=== PATIENT | male | born 1960 | race Hispanic/Latino ===

== ENCOUNTER 2016-10-27 19:38 | Inpatient (IN) | payer MEDICARE, MEDICAID ==
[2016-10-27 19:39] VITALS: BMI 19.7
--- NOTE | 2016-10-27 19:52 | C.PDOC ---
History Of Present Illness 56 y/o male presents to the ED with complains of depression and SI. Pt states he is tired of life, denies specific plan. No physical complaints at this time. Time Seen by Provider: 10/27/16 19:51 Chief Complaint (Nursing): Psychiatric Evaluation History Per: Patient History/Exam Limitations: no limitations Onset/Duration Of Symptoms: Days Current Symptoms Are (Timing): Still Present Suicide/Self Injury Attempted (Context): None Modifying Factor(s): None Severity: Mild Associated Symptoms: Depression, Suicidal Thoughts Involuntary Hold By: None Recent travel outside of the [place]: No Past Medical History Reviewed: Historical Data, Nursing Documentation, Vital Signs Vital Signs: Last Vital Signs Temp 97.9 F 10/28/16 05:54 Pulse 96 H 10/28/16 05:54 Resp 18 10/28/16 05:54 BP 190/100 H 10/28/16 05:54 Pulse Ox 97 10/28/16 05:54 - Medical History PMH: Depression, Hepatitis, HTN, Kidney Stones, Chronic Kidney Disease, Seizures Surgical History: Appendectomy (AGE 12) - [facility] Procedures DETOXIFICATION SERVICES FOR SUBSTANCE ABUSE TREATMENT (05/11/15) MEDICATION MANAGEMENT (05/15/15) Family History: States: Unknown Family Hx - Social History Hx Tobacco Use: No Hx Alcohol Use: Yes Hx Substance Use: Yes (ALCOHOL) - Immunization History Hx Tetanus Toxoid Vaccination: No Hx Influenza Vaccination: No Hx Pneumococcal Vaccination: No Review Of Systems Constitutional: Negative for: Fever Cardiovascular: Negative for: Chest Pain Respiratory: Negative for: Shortness of Breath Gastrointestinal: Negative for: Vomiting Neurological: Negative for: Headache Psych: Positive for: Depression, Suicidal ideation Physical Exam - Physical Exam Appears: Non-toxic, No Acute Distress Skin: Warm, Dry, No Rash Head: Atraumatic, Normacephalic Neck: Supple Chest: Symmetrical Cardiovascular: Rhythm Regular, No Murmur Respiratory: No Accessory Muscle Use, No Rales, No Rhonchi, No Wheezing Extremity: Bilateral: Atraumatic Neurological/Psych: Oriented x3, Normal Speech ED Course And Treatment - Laboratory Results Result Diagrams: 10/27/16 20:10 10/27/16 20:10 ECG: Interpreted By Me, Viewed By Me ECG Rhythm: Sinus Rhythm (77), Nonspecific Changes O2 Sat by Pulse Oximetry: 99 (room air) Pulse Ox Interpretation: Normal - Radiology CXR: Interpreted by Me, Viewed By Me CXR Interpretation: No: Infiltrates, Fracture, Pnemothorax Medical Decision Making Medical Decision Making: May need medicine consult for blood pressure control ED OBSERVATION Date of observation admission: 10/27/16 Time of observation admission: 21:03 - Observation admission statement Patient is being placed in observation because:: acute alcohol intoxication - Goals of Observation Goals of observation are:: sobriety, crisis eval - Progress Note Progress Note: 10/27/16 21:03 vitals stable, no complaints 10/27/16 23:07 no complaints 10/28/16 01:17 vitals stable 10/28/16 03:17 arousable, awaiting crisis eval Disposition Discussed With Dr.: Norman Self Comment: accepted the pt on his service and took over the care at 6:12 AM Doctor Will See Patient In The: Hospital Counseled Patient/Family Regarding: Studies Performed, Diagnosis - Disposition Disposition: HOSPITALIZED Disposition Time: 19:52 Condition: FAIR - Clinical Impression Clinical Impression: Depression, Alcohol intoxication, Alcohol abuse - Scribe Statement The provider has reviewed the documentation as recorded by the Bhaskar Mendoza Provider Attestation: All medical record entries made by the Bhaskar were at my direction and personally dictated by me. I have reviewed the chart and agree that the record accurately reflects my personal performance of the history, physical exam, medical decision making, and the department course for this patient. I have also personally directed, reviewed, and agree with the discharge instructions and disposition. Decision To Admit - Pt Status Changed To: Hospital Disposition Of: Inpatient - Admit Certification Admit to Inpatient:: After my assessment, the patient will require hospitalization for at least two midnights. This is because of the severity of symptoms shown, intensity of services needed, and/or the medical risk in this patient being treated as an outpatient. - InPatient: Physician Admission Certification: I certify that this patient requires 2 or more midnights of care for the following reason:: After my assessment, the patient will require hospitalization for at least two midnights. This is because of the severity of symptoms shown, intensity of services needed, and/or the medical risk in this patient being treated as an outpatient. - . Bed Request Type: Psychiatry Admitting Physician: Norman Self Patient Diagnosis: Alcohol abuse, Alcohol intoxication, Depression
[2016-10-27 20:20] LABS: BASO % 0.4 % (0.0-2.0); EOS % 0.2 % (0.0-4.0); HEMATOCRIT 52.9 % (35.0-51.0); LYMPH # 1.1 K/uL (1.0-4.3); LYMPH % 12.9 % (20.0-40.0); MEAN CORPUSCULAR HEMOGLOBIN 28.7 pg (27.0-31.0); MEAN CORPUSCULAR HGB CONC 33.4 g/dL (33.0-37.0); MEAN PLATELET VOLUME 8.5 fL (7.2-11.7); MONO # 0.3 K/uL (0.0-0.8); MONO % 3.8 % (0.0-10.0); NRBC % 0.1 % (0.0-2.0); WHITE BLOOD COUNT 8.4 K/uL (4.8-10.8)
[2016-10-27 20:24] LABS: CHLORIDE 102 mmol/L (98-107); POTASSIUM 4.4 mmol/L (3.6-5.2); SODIUM 143 mmol/L (132-148)
[2016-10-27 20:26] LABS: AST/SGOT 136 U/L (17-59); BILIRUBIN,TOTAL 1.5 mg/dL (0.2-1.3); CARBON DIOXIDE 19 mmol/L (22-30); GFR AFRICAN-AMERICAN > 60
[2016-10-27 20:27] LABS: ALKALINE PHOSPHATASE 104 U/L (38-126); ALT/SGPT 66 U/L (21-72); BLOOD UREA NITROGEN 12 mg/dL (9-20); CALCIUM 8.7 mg/dl (8.6-10.4); GLUCOSE,RANDOM 127 mg/dL (75-110)
[2016-10-27 20:43] LABS: RBC URINE 4 /hpf (0-3); URINE BACTERIA RARE (<OCC); URINE BILIRUBIN NEGATIVE (NEGATIVE); URINE BLOOD 1+ (NEGATIVE); URINE COLOR Yellow (YELLOW); URINE GLUCOSE (UA) NORMAL (Normal); URINE HYALINE CAST >20 /lpf (0-2); URINE KETONE NEGATIVE (NEGATIVE); URINE LEUKOCYTE ESTERASE NEG Leu/uL (Negative); URINE PROTEIN 2+ mg/dL (NEGATIVE); WBC URINE 1 /hpf (0-5)
[2016-10-27 20:59] LABS: ALCOHOL SERUM 342 mg/dl (0-10)
--- NOTE | 2016-10-28 09:44 | PCM.PSYCH ---
Initial Psychiatric Evaluation - Initial Psychiatric Evaluation Type of Admission: Voluntary Legal Status: Capacity Chief Complaint (in patient's own words): I was feeling depressed and suicidal History of Present Illness and Precipitating Events: Patient is a 56 years old male, who is currently homeless on SSI, came to the hospital with depressed mood and suicidal ideation. Patient reports a long history of depressed mood, alcohol abuse and opioid abuse. His was last discharged from psychiatric hospital 2 years ago. As per the patient he relapsed on drinking as soon as he was discharged from the hospital. Yesterday, he consumed more than 2 pints of vodka and abused almost 1 bag of heroin and stated experiencing withdrawal symptoms, became increasingly depressed and developed suicidal ideation, so came to the hospital to get help. His BAL was 342 on admission. He reports feelings of hopelessness and helplessness and worthlessness. He reports of suicidal ideation. He denies poor concentration and agitation but denies any racing of thoughts and flight of ideas. He denies any auditory or visual hallucinations or any persecutory delusions. He reports withdrawal symptoms including shakes, tremors, anxiety, sweating or cramps and headaches. Current Medications: Active Medications Generic Name Dose Route Start Last Admin Trade Name Freq PRN Reason Stop Dose Admin Al Hydrox/Mg Hydrox/Simethicone 30 ml 10/28/16 09:39 Maalox 30 Ml PO TID PRN Indigestion / Heartburn Clonidine HCl 0.1 mg 10/28/16 09:37 Catapres PO Q4H PRN Symptoms of alcohol withdrawl Folic Acid 1 mg 10/28/16 10:00 Folic Acid PO DAILY [facility] Loperamide HCl 2 mg 10/28/16 09:39 Imodium PO Q8 PRN Diarrhea Lorazepam 1 mg 10/28/16 09:37 Ativan PO Q4H PRN Symptoms of alcohol withdrawl Lorazepam 1 mg 10/28/16 09:45 Ativan PO 11/02/16 09:44 .TAPER JULIO Taper Multivitamins 1 tab 10/28/16 10:00 Hexavitamin PO DAILY JULIO Ondansetron HCl 4 mg 10/28/16 09:39 Zofran Tab PO Q8 PRN Nausea/Vomiting Pseudoephedrine HCl 60 mg 10/28/16 09:39 Sudafed Tab PO QID PRN Nasal/Sinus Congestion Thiamine HCl 100 mg 10/28/16 10:00 Vitamin B1 Tab PO DAILY JULIO Trazodone HCl 50 mg 10/28/16 09:38 Desyrel PO HS PRN Insomnia Past Psychiatric History - Past Psychiatric History Previous Treatment History: Inpatient Pertinent Medical Hx (Current Medical&Sleep Prob, Allergies): Allergies Allergy/AdvReac Type Severity Reaction Status Date / Time No Known Allergies Allergy Verified 10/27/16 19:48 Folic Acid 1 mg PO DAILY #0 tab 05/20/15 Multivitamin Therapeutic Tab [Thera Tab] 1 tab PO DAILY #0 tab 05/20/15 QUEtiapine [Seroquel] 25 mg PO BID PRN #0 tab 05/20/15 Thiamine [Vitamin B1 Tab] 100 mg PO DAILY #0 tab 05/20/15 Naproxen [Naprosyn] 1 tab PO BID PRN #20 tab 01/10/16 Tamsulosin [Flomax] 0.4 mg PO HS #7 cap 01/10/16 amLODIPine [Norvasc] 10 mg PO DAILY 01/10/16 Review of Systems - Review of Systems All systems: reviewed and no additional remarkable complaints except - Psychiatric Psychiatric: Anxiety, Irritability, Suicidal Ideation Mental Status Examination - Personal Presentation Personal Presentation: Looks stated age - Affect Affect: Constricted, Depressed - Motor Activity Motor Activity: Calm, Psychomotor Agitation - Reliability in Providing Information Reliability in Providing Information: Poor, due to altered mood - Speech Speech: Organized - Mood Mood: Depressed, Anxious - Formal Thought Process Formal Thought Process: No Impairment - Obsessions/Compulsions Obsessions: No Compulsions: No - Cognitive Functions Orientation: Person, Place, Situation, Time Sensorium: Alert Attention/Concentration: Attentive Abstract Thinking: [place] Estimate of Intelligence: Below average Judgement: Imparied, as evidence by: Poor judgement, Imparied, as evidence by: Lack of insight into illness - Risk Risk: Suicidal, Withdrawal, Diminished functioning - Strength & Assets Inventory Strength & Assets Inventory: Intelligence DSM 5 DX - DSM 5 DSM 5 Diagnosis: Major depressive disorder recurrent severe without psychotic features Alcohol use disorder severe Alcohol withdrawal uncomplicated Opiate use disorder moderate - Recommended/Plan of Treatment Treatment Recommendations and Plan of Treatment: major depressive disorder recurrent severe without psychotic features CBT Psychoeducation Supportive therapy, group therapy, individual therapy Seroquel 100 mg by mouth daily at bedtime Trazodone 50 mg by mouth daily at bedtime Alcohol use disorder severe CBT Psychoeducation Supportive therapy, individual therapy Use NM for abstinence Alcohol withdrawal uncomplicated CBT Psychoeducation Supportive therapy, individual therapy Ativan when necessary Ativan taper Start folic acid/thiamine/multivitamin Opiate use disorder moderate CBT Psychoeducation Supportive therapy, individual therapy Use NM for abstinence - Smoking Cessation Smoking Cessation Initiated: No
[2016-10-28] MEDS: Multiple Vitamins Tab PO SCH (11:01)
[2016-10-28] MEDS ORDERED: Aluminum Hydroxide/Magnesium Hydroxide Susp (30 mL) PO PRN (20:37)
[2016-10-28] MEDS: Aluminum Hydroxide/Magnesium Hydroxide Susp (30 mL) PO PRN (20:39)
[2016-10-29] MEDS: Aluminum Hydroxide/Magnesium Hydroxide Susp (30 mL) PO PRN ×3 (03:13→15:53)
[2016-10-29] MEDS: Multiple Vitamins Tab PO SCH (10:12)
--- NOTE | 2016-10-29 11:41 | PCM.PYCHPN ---
Psychiatric Progress Note - Psychiatric Progress Note Patient seen today, length of contact: 16 min Patient Chief Complaint: I'm feeling little better Problems Identified/Issues Discussed: Pt was seen and evaluated. Chart reviewed and discussed with the nurse. Pt is improving, however he is still anxious, depressed, tearful and drug seeking. Pt states that he is feeling fatigued and is disgusted with himself. He can't sleep at night due to back pain and racing thoughts. He also complains of left leg pain radiating to his left lower back, congestion and shakes. Patient also reports seeing colors and hundredth of people of dancing since yesterday. He denies auditory hallucinations, homicidal or suicidal ideation or persecutory delusions. He reports that his appetite is improving. Patient denies medication side effects and plans to try and do it right next time. Medication Change: Yes (Ativan taper) Medical Record Reviewed: Yes Mental Status Examination - Cognitive Function Orientation: Person, Place, Situation, Time Memory: Intact Attention: WNL Concentration: Poor Association: WNL Fund of Knowledge: Poor - Mood Mood: Depressed, Anxious - Affect Affect: Constricted - Speech Speech: Soft - Formal Thought Process Formal Thought Process: No Impairment - Suicidal Ideation Suicidal Ideation: No - Homicidal Ideation Homicidal Ideation: No Goal/Treatment Plan - Goal/Treatment Plan Need for Continued Stay: Discharge may exacerbated symptoms, Severe functional impairment Progress Toward Problem(s) and Goals/Treatment Plan: major depressive disorder recurrent severe without psychotic features CBT Psychoeducation Supportive therapy, group therapy, individual therapy Seroquel 100 mg by mouth daily at bedtime Trazodone 50 mg by mouth daily at bedtime start lithium 300 mg by mouth twice a day Alcohol use disorder severe CBT Psychoeducation Supportive therapy, individual therapy Use HI for abstinence Alcohol withdrawal uncomplicated CBT Psychoeducation Supportive therapy, individual therapy Ativan when necessary Ativan taper Start folic acid/thiamine/multivitamin Opiate use disorder moderate CBT Psychoeducation Supportive therapy, individual therapy Use HI for abstinence - Smoking Cessation Smoking Cessation Initiated: No
[2016-10-29 15:11] VITALS: O2SAT 99
[2016-10-30] MEDS ORDERED: Pneumococcal 23-Valent Vaccine IM ONE (10:00)
[2016-10-30] MEDS: Aluminum Hydroxide/Magnesium Hydroxide Susp (30 mL) PO PRN (10:09)
[2016-10-30] MEDS: Multiple Vitamins Tab PO SCH (10:10)
--- NOTE | 2016-10-30 14:30 | PCM.PYCHPN ---
Psychiatric Progress Note - Psychiatric Progress Note Patient seen today, length of contact: 17 min Patient Chief Complaint: I am feeling much better Problems Identified/Issues Discussed: Pt was seen and evaluated. Chart reviewed and discussed with the nurse. Pt reports improvement in his mood and denies any physical symptoms. He denies auditory hallucinations, homicidal or suicidal ideation or persecutory delusions. He reports that his appetite is improving. Patient denies medication side effects and plans to try and do it right next time. Medication Change: No Medical Record Reviewed: Yes Mental Status Examination - Cognitive Function Orientation: Person, Place, Situation, Time Memory: Intact Attention: WNL Concentration: WNL Association: WNL Fund of Knowledge: WNL - Mood Mood: Anxious - Affect Affect: Constricted - Speech Speech: Soft - Formal Thought Process Formal Thought Process: No Impairment - Suicidal Ideation Suicidal Ideation: No - Homicidal Ideation Homicidal Ideation: No Goal/Treatment Plan - Goal/Treatment Plan Need for Continued Stay: Discharge may exacerbated symptoms, Severe functional impairment Progress Toward Problem(s) and Goals/Treatment Plan: major depressive disorder recurrent severe without psychotic features CBT Psychoeducation Supportive therapy, group therapy, individual therapy Seroquel 100 mg by mouth daily at bedtime Trazodone 50 mg by mouth daily at bedtime lithium 300 mg by mouth twice a day Alcohol use disorder severe CBT Psychoeducation Supportive therapy, individual therapy Use [place] for abstinence Alcohol withdrawal uncomplicated CBT Psychoeducation Supportive therapy, individual therapy Ativan when necessary Ativan taper Start folic acid/thiamine/multivitamin Opiate use disorder moderate CBT Psychoeducation Supportive therapy, individual therapy Use AK for abstinence - Smoking Cessation Smoking Cessation Initiated: No
[2016-10-31 07:32] VITALS: TEMP 97.3
[2016-10-31] MEDS: Multiple Vitamins Tab PO SCH (09:26)
--- NOTE | 2016-10-31 12:42 | PCM.PYCHDC ---
Mental Status Examination - Mental Status Examination Orientation: Person, Place, Situation, Time Memory: Intact Mood: Neutral Affect: Constricted Speech: Soft Attention: WNL Concentration: WNL Association: WNL Fund of Knowledge: WNL Formal Thought Process: No Impairment Description of patient's judgement and insight: good, fair Psychotic Thoughts and Behaviors: denies any AVH Suicidal Ideation: No Current Homicidal Ideation?: No Discharge Summary - Discharge Note Reason for Hospitalization: Patient is a 56 years old male, who is currently homeless on SSI, came to the hospital with depressed mood and suicidal ideation. Patient reports a long history of depressed mood, alcohol abuse and opioid abuse. His was last discharged from psychiatric hospital 2 years ago. As per the patient he relapsed on drinking as soon as he was discharged from the hospital. Yesterday, he consumed more than 2 pints of vodka and abused almost 1 bag of heroin and stated experiencing withdrawal symptoms, became increasingly depressed and developed suicidal ideation, so came to the hospital to get help. His BAL was 342 on admission. He reports feelings of hopelessness and helplessness and worthlessness. He reports of suicidal ideation. He denies poor concentration and agitation but denies any racing of thoughts and flight of ideas. He denies any auditory or visual hallucinations or any persecutory delusions. He reports withdrawal symptoms including shakes, tremors, anxiety, sweating or cramps and headaches. Consultations:: List each consultation separately and include: 1. Reason for request. 2. Findings. 3. Follow-up Summary of Hospital Course include:: 1. Description of specific treatment plan utilized for patients during their course of treatmen. 2. Summarize the time- course for resolution of acute symptoms and/or regressed behaviors. 3. Describe issues identified and worked on during hospitalization. 4. Describe medication utilized. 5. Describe medical problems identified and treated. 6. Reassessment of suicide risk Summary of Hospital Course: During the course of his stay, patient (pt) started progressively improving and he no longer remained irritable, depressed, and suicidal. His mood was improved and he started attending groups and meetings and started socializing. Patient denied any feelings of hopelessness, helplessness, and worthlessness, denied any problem with the sleep or appetite, denied suicidal ideation or homicidal ideation. Pt denied any auditory or visual hallucinations. Some changes were made in his current medications and patient was discharged on following medications. He tolerated these medications very well and denied any side effects. - Final Diagnosis (DSM 5) Condition upon Discharge: FAIR DSM 5: Major depressive disorder recurrent severe without psychotic features Alcohol use disorder severe Alcohol withdrawal uncomplicated Opiate use disorder moderate Disposition: HOME/ ROUTINE Follow-up Treatment Plan: Education: Pt was educated and counseled about the risks and benefits of taking and not taking medications. Pt was educated and counseled about the risks of drinking and abusing drugs. Pt was educated and counseled to go to the ER or call 911 if pt develop suicidal ideation or homicidal ideation, worsening of symptoms or severe side effects of the meds. Prescriptions/Medication Reconciliation: Howell Carbonate [Howell Carbonate 300MG] 300 mg PO BID #60 cap QUEtiapine [Seroquel] 100 mg PO HS #30 tab traZODone [Desyrel] 50 mg PO HS PRN #30 tab PRN Reason: Insomnia - Smoking Cessation Smoking Cessation Medication prescribed: No - Antipsychotic Medications Pt discharged on 2 or more routine antipsychotic medications: No
[2016-10-31 14:07] VITALS: BP 126/82; PULSE 90; RESP 16
== END 2016-10-31 14:12 | disposition home or self-care (01) | DRG 885 ==
LOC: C.ER 19:38 → C.9OBSV 21:02 → OBSVTOIN 10-28 06:11 → C.5E 10-28 06:27
PROVIDERS: ADMIT Psychiatry & Neurology Psychiatry; ATTEND Psychiatry & Neurology Psychiatry
PROC: GZ3ZZZZ Medication Management (ICD-10-PCS; principal; 2016-10-28)
PROC: HZ83ZZZ Medication Management for Substance Abuse Treatment, Antabuse (ICD-10-PCS; 2016-10-28)
PROC: GZHZZZZ Group Psychotherapy (ICD-10-PCS; 2016-10-28)
PROC: GZ56ZZZ Individual Psychotherapy, Supportive (ICD-10-PCS; 2016-10-28)
DX: F33.2 Major depressive disorder, recurrent severe without psychotic features (principal); R45.851 Suicidal ideations; F10.230 Alcohol dependence with withdrawal, uncomplicated; F11.10 Opioid abuse, uncomplicated; Z23 Encounter for immunization

== ENCOUNTER 2016-12-10 11:44 | Emergency (ER) | payer MEDICARE, OTHER ==
[2016-12-10 11:44] VITALS: BMI 19.7
[2016-12-10] MEDS ORDERED: Sodium Chloride 0.9% 1,000 ML ONE (12:15)
[2016-12-10] MEDS ORDERED: DiphenhydrAMINE 50 mg/ml Inj IVP STA (12:17)
[2016-12-10] MEDS ORDERED: Sodium Chloride 0.9% 1,000 ML IV ONE (12:17)
[2016-12-10 12:28] LABS: BASO % 0.3 % (0.0-2.0); HEMATOCRIT 38.5 % (35.0-51.0); LYMPH # 0.7 K/uL (1.0-4.3); LYMPH % 8.6 % (20.0-40.0); MEAN CORPUSCULAR HEMOGLOBIN 30.3 pg (27.0-31.0); MEAN CORPUSCULAR HGB CONC 34.2 g/dL (33.0-37.0); MONO # 0.4 K/uL (0.0-0.8); MONO % 4.8 % (0.0-10.0); PLATELET COUNT 155 K/uL (130-400); RED CELL DISTRIBUTION WIDTH 14.5 % (11.5-14.5); WHITE BLOOD COUNT 7.8 K/uL (4.8-10.8)
[2016-12-10 12:32] LABS: MEAN CELL VOLUME 88.8 fL (80.0-94.0)
[2016-12-10 12:40] LABS: CHLORIDE 100 mmol/L (98-107); POTASSIUM 3.7 mmol/L (3.6-5.2); SODIUM 138 mmol/L (132-148)
[2016-12-10 12:42] LABS: BILIRUBIN,TOTAL 0.9 mg/dL (0.2-1.3); CARBON DIOXIDE 20 mmol/L (22-30); GFR AFRICAN-AMERICAN > 60
[2016-12-10 12:43] LABS: ALB/GLOB RATIO 1.5 (1.0-2.1); ALKALINE PHOSPHATASE 74 U/L (38-126); ALT/SGPT 27 U/L (21-72); AST/SGOT 32 U/L (17-59); BLOOD UREA NITROGEN 7 mg/dL (9-20); CALCIUM 8.7 mg/dl (8.6-10.4); GLUCOSE,RANDOM 121 mg/dL (75-110); TOTAL PROTEIN 8.4 g/dL (6.3-8.3)
[2016-12-10 12:44] LABS: ALCOHOL SERUM 163 mg/dl (0-10)
[2016-12-10] MEDS ORDERED: DiphenhydrAMINE 50 mg/ml Inj ONE (12:53)
[2016-12-10 13:04] LABS: RBC URINE < 1 /hpf (0-3); URINE BILIRUBIN NEGATIVE (NEGATIVE); URINE BLOOD NEGATIVE (NEGATIVE); URINE COLOR Yellow (YELLOW); URINE GLUCOSE (UA) 1+ mg/dL (Normal); URINE KETONE NEGATIVE (NEGATIVE); URINE LEUKOCYTE ESTERASE NEG Leu/uL (Negative); URINE PROTEIN 1+ mg/dL (NEGATIVE); WBC URINE < 1 /hpf (0-5)
--- NOTE | 2016-12-10 13:05 | C.PDOC ---
History Of Present Illness 56 year old male presents with complaints of generalized abdominal pain that began this morning with associated nausea, vomiting, and non-bilious and non- bloody diarrhea. Patient admits to drinking alcohol yesterday and last heroin use was last week. He notes feeling depressed but denies any suicidal or homicidal ideations and no fever. Time Seen by Provider: 12/10/16 12:08 Chief Complaint (Nursing): Abdominal Pain History Per: Patient History/Exam Limitations: no limitations Onset/Duration Of Symptoms: Hrs Current Symptoms Are (Timing): Still Present Location Of Pain/Discomfort: Diffuse Radiation Of Pain To:: None Quality Of Discomfort: "Pain" Associated Symptoms: Nausea, Vomiting, Diarrhea. denies: Fever, Chills Recent travel outside of the [place]: No Past Medical History Reviewed: Historical Data, Nursing Documentation, Vital Signs Vital Signs: Last Vital Signs Temp 98.3 F 12/10/16 14:53 Pulse 84 12/10/16 14:43 Resp 20 12/10/16 14:43 BP 159/86 H 12/10/16 14:43 Pulse Ox 98 12/10/16 14:43 - Medical History PMH: Anxiety, Depression, Hepatitis, HTN, Kidney Stones, Chronic Kidney Disease , Seizures Surgical History: Appendectomy (AGE 12) - [facility] Procedures DETOXIFICATION SERVICES FOR SUBSTANCE ABUSE TREATMENT (05/11/15) GROUP PSYCHOTHERAPY (10/28/16) INDIVIDUAL PSYCHOTHERAPY, SUPPORTIVE (10/28/16) MEDICATION MANAGEMENT (10/28/16) MEDS MGMT FOR SUBSTANCE ABUSE TREATMENT, ANTABUSE (10/28/16) Family History: States: Unknown Family Hx - Social History Hx Tobacco Use: No Hx Alcohol Use: Yes Hx Substance Use: Yes - Immunization History Hx Tetanus Toxoid Vaccination: No Hx Influenza Vaccination: No Hx Pneumococcal Vaccination: No Review Of Systems Constitutional: Negative for: Fever, Chills, Sweats Cardiovascular: Negative for: Chest Pain, Palpitations Respiratory: Negative for: Cough, Shortness of Breath Gastrointestinal: Positive for: Nausea, Vomiting, Abdominal Pain, Diarrhea Psych: Negative for: Suicidal ideation Physical Exam - Physical Exam Appears: Non-toxic, Other (Patient appears uncomfortable, patient is crying and tearing. EtOH on breath. ) Skin: Warm, Diaphoretic Head: Atraumatic Oral Mucosa: Moist Neck: Supple Chest: Symmetrical, No Deformity Cardiovascular: Rhythm Regular Respiratory: No Rales, No Rhonchi, No Stridor, No Wheezing Gastrointestinal/Abdominal: Soft, Tenderness (diffuse tenderness ), No Distention, No Guarding, No Rebound Extremity: Normal ROM, No Tenderness Neurological/Psych: Oriented x3 ED Course And Treatment - Laboratory Results Result Diagrams: 12/10/16 12:23 12/10/16 12:23 O2 Sat by Pulse Oximetry: 100 (room air ) Medical Decision Making Medical Decision Making: Impression: alcohol intoxication, vomiting, abdominal pain Plan: * Labs * IV NS, Reglan, Benadryl Progress: Patient continued to complain of pain. Tylenol and catapres ordered for HTN and pain Labs reviewed: no leukocytosis, UDS positive for Opiates, benzo and barbituates. ETOH is 163. Patient to be observed in ED On reevaluation patient resting and sleeping comfortably in no distress, he is easily arousable, he reports feeling better. Abdomen remains soft and nontender. He was able to tolerate PO. Patient stable for discharge. Offer information for detox and outpatient care Disposition Counseled Patient/Family Regarding: Studies Performed, Diagnosis, Need For Followup, Rx Given - Disposition Referrals: [facility] [Outside] [facility] [Outside] Disposition: HOME/ ROUTINE Disposition Time: 14:50 Condition: STABLE Additional Instructions: Follow up with the clinic in 2-5 days for further evaluation. Take medications as prescribed. Return to the emergency department at any time if symptoms persist or worsen. You may call [facility] for any assistance . Prescriptions: Atropine/Hyoscyamine [] 1 tab PO Q8 #14 tab Ondansetron ODT [Zofran ODT] 1 odt PO BID PRN #6 odt PRN Reason: Nausea/Vomiting Instructions: Gastroenteritis (GEN) - POA Present On Arrival: None - Clinical Impression Clinical Impression: Alcohol intoxication, Alcoholic gastritis - Scribe Statement The provider has reviewed the documentation as recorded by the Scriblawanda Cordero All medical record entries made by the Ozielibe were at my direction and personally dictated by me. I have reviewed the chart and agree that the record accurately reflects my personal performance of the history, physical exam, medical decision making, and the department course for this patient. I have also personally directed, reviewed, and agree with the discharge instructions and disposition.
[2016-12-10 13:10] LABS: EOSINOPHIL 1 % (0-4); NEUTROPHIL 78 % (50-75); TOTAL CELLS COUNTED 100
[2016-12-10 14:44] VITALS: BP 159/86; PULSE 84; RESP 20
[2016-12-10 14:53] VITALS: TEMP 98.3
[2016-12-10 18:39] VITALS: O2SAT 100
== END 2016-12-10 14:56 | disposition home or self-care (01) ==
LOC: C.ER 11:44
DX: K29.20 Alcoholic gastritis without bleeding (principal); F10.129 Alcohol abuse with intoxication, unspecified; Y90.6 Blood alcohol level of 120-199 mg/100 ml; I10 Essential (primary) hypertension
CPT/HCPCS: 80053; 81001; 83690; 85025; 96361; 96374; 96375; 99285; G0480; J1200; J1885; J2765; J7040

== ENCOUNTER 2017-02-25 12:44 | Inpatient (IN) | payer MEDICARE, OTHER ==
[2017-02-25 12:45] VITALS: BMI 19.7
--- NOTE | 2017-02-25 13:24 | RAD ---
HISTORY: CP COMPARISON: Chest x-ray performed 01/22/16 TECHNIQUE: Chest, one view. FINDINGS: LUNGS: No focal consolidation. Please note that chest x-ray has limited sensitivity for the detection of pulmonary masses. PLEURA: No significant pleural effusion identified. No definite pneumothorax . CARDIOVASCULAR: The cardiomediastinal silhouette appears within normal limits of size. OSSEOUS STRUCTURES: No acute osseous abnormality identified. VISUALIZED UPPER ABDOMEN: Unremarkable. OTHER FINDINGS: None. IMPRESSION: No focal consolidation, significant pleural effusion, or definite pneumothorax identified.
[2017-02-25 13:34] LABS: BASO # 0.1 K/uL (0.0-0.2); BASO % 0.8 % (0.0-2.0); EOS # 0.1 K/uL (0.0-0.7); HEMATOCRIT 37.7 % (35.0-51.0); LYMPH # 1.3 K/uL (1.0-4.3); MEAN CELL VOLUME 87.7 fL (80.0-94.0); MEAN CORPUSCULAR HEMOGLOBIN 29.3 pg (27.0-31.0); MEAN CORPUSCULAR HGB CONC 33.4 g/dL (33.0-37.0); MEAN PLATELET VOLUME 6.8 fL (7.2-11.7); MONO # 0.6 K/uL (0.0-0.8); MONO % 6.9 % (0.0-10.0); RED CELL DISTRIBUTION WIDTH 14.8 % (11.5-14.5); WHITE BLOOD COUNT 8.5 K/uL (4.8-10.8)
[2017-02-25 13:48] LABS: ALB/GLOB RATIO 1.1 (1.0-2.1); ALKALINE PHOSPHATASE 77 U/L (38-126); ALT/SGPT 34 U/L (21-72); AST/SGOT 39 U/L (17-59); BILIRUBIN,TOTAL 0.5 mg/dL (0.2-1.3); BLOOD UREA NITROGEN 21 mg/dL (9-20); CALCIUM 8.6 mg/dl (8.6-10.4); CARBON DIOXIDE 26 mmol/L (22-30); CHLORIDE 102 mmol/L (98-107); GFR AFRICAN-AMERICAN > 60; GLUCOSE,RANDOM 109 mg/dL (75-110); POTASSIUM 4.1 mmol/L (3.6-5.2); SODIUM 143 mmol/L (132-148); TOTAL PROTEIN 7.3 g/dL (6.3-8.3)
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
[2017-02-25 14:28] LABS: ALCOHOL SERUM 213 mg/dl (0-10)
[2017-02-25 14:51] LABS: RBC URINE 1 /hpf (0-3); URINE BILIRUBIN NEGATIVE (NEGATIVE); URINE BLOOD NEGATIVE (NEGATIVE); URINE COLOR Yellow (YELLOW); URINE GLUCOSE (UA) NORMAL (Normal); URINE KETONE NEGATIVE (NEGATIVE); URINE LEUKOCYTE ESTERASE NEG Leu/uL (Negative); URINE PROTEIN NEGATIVE (NEGATIVE); URINE UROBILINOGEN NORMAL mg/dL (0.2-1.0); WBC URINE 1 /hpf (0-5)
--- NOTE | 2017-02-25 17:46 | CP.PCM.HP ---
Past Patient History - Infectious Disease Hx of Infectious Diseases: None - Past Medical History & Family History Past Medical History?: Yes - Past Social History Smoking Status: Former Smoker - CARDIAC Hx Hypertension: No - PULMONARY Hx Tuberculosis: No - NEUROLOGICAL Hx Seizures: Yes - HEENT Hx HEENT Problems: No - RENAL Hx Chronic Kidney Disease: Yes Hx Kidney Stones: Yes - ENDOCRINE/METABOLIC Hx Endocrine Disorders: No - INTEGUMENTARY Hx Dermatological Problems: No - MUSCULOSKELETAL/RHEUMATOLOGICAL Hx Musculoskeletal Disorders: Yes Hx Back Pain: Yes Hx Falls: Yes - GASTROINTESTINAL Other/Comment: Hepatic encephalopathy - GENITOURINARY/GYNECOLOGICAL Hx Sexually Transmitted Disorders: No - PSYCHIATRIC Hx Anxiety: Yes Hx Depression: Yes Hx Substance Use: Yes - SURGICAL HISTORY Hx Appendectomy: Yes (AGE 12) - ANESTHESIA Hx Anesthesia: Yes Hx Anesthesia Reactions: No Hx Malignant Hyperthermia: No Meds Allergies/Adverse Reactions: Allergies Allergy/AdvReac Type Severity Reaction Status Date / Time No Known Allergies Allergy Verified 12/10/16 12:03 Physical Exam - Constitutional Appears: Well - Head Exam Head Exam: ATRAUMATIC, NORMAL INSPECTION, NORMOCEPHALIC - Eye Exam Eye Exam: EOMI, Normal appearance, PERRL Pupil Exam: NORMAL ACCOMODATION, PERRL - ENT Exam ENT Exam: Mucous Membranes Moist, Normal Exam - Neck Exam Neck exam: Positive for: Normal Inspection - Respiratory Exam Respiratory Exam: Decreased Breath Sounds - Cardiovascular Exam Cardiovascular Exam: REGULAR RHYTHM, +S1, +S2 - GI/Abdominal Exam GI & Abdominal Exam: Diminished Bowel Sounds, Soft - Rectal Exam Rectal Exam: Deferred Results - Vital Signs Recent Vital Signs: Last Vital Signs Temp 98.2 F 02/25/17 12:55 Pulse 84 02/25/17 17:19 Resp 12 02/25/17 17:19 BP 139/83 02/25/17 17:19 Pulse Ox 95 02/25/17 17:19 - Labs Result Diagrams: 02/25/17 13:23 02/25/17 13:23
[2017-02-26] MEDS: Enoxaparin 40 mg Syringe SC SCH (09:54)
--- NOTE | 2017-02-26 14:21 | CP.PCM.PN ---
Subjective - Date & Time of Evaluation Date of Evaluation: 02/26/17 Time of Evaluation: 11:20 - Subjective Subjective: clinically same Objective - Vital Signs/Intake and Output Vital Signs (last 24 hours): Temp Pulse Resp BP Pulse Ox 97.9 F 71 20 132/81 97 02/26/17 08:00 02/26/17 08:00 02/26/17 08:00 02/26/17 08:00 02/26/17 08:00 Intake and Output: 02/26/17 02/26/17 06:59 18:59 Intake Total 710 Output Total 200 Balance 510 - Medications Medications: Current Medications Aspirin (Aspirin) 325 mg PO DAILY [facility] Last Admin: 02/26/17 09:53 Dose: 325 mg Chlordiazepoxide (Librium) 25 mg PO Q4H PRN PRN Reason: Alcohol Withdrawal Last Admin: 02/26/17 13:23 Dose: 25 mg Enoxaparin Sodium (Lovenox) 40 mg SC DAILY [facility] Last Admin: 02/26/17 09:54 Dose: 40 mg Lisinopril (Zestril) 10 mg PO DAILY [facility] Last Admin: 02/26/17 09:54 Dose: 10 mg Quetiapine Fumarate (Seroquel) 100 mg PO HS [facility] Last Admin: 02/25/17 21:16 Dose: 100 mg - Labs Labs: PT 11.6 SECONDS (9.7-12.2) 02/25/17 13:23 INR 1.0 02/25/17 13:23 APTT 26 SECONDS (21-34) 02/25/17 13:23 - Constitutional Appears: Well - Head Exam Head Exam: ATRAUMATIC, NORMAL INSPECTION, NORMOCEPHALIC - Eye Exam Eye Exam: EOMI, Normal appearance, PERRL Pupil Exam: NORMAL ACCOMODATION, PERRL - ENT Exam ENT Exam: Mucous Membranes Moist, Normal Exam - Neck Exam Neck Exam: Full ROM, Normal Inspection. absent: Lymphadenopathy - Respiratory Exam Respiratory Exam: Decreased Breath Sounds - Cardiovascular Exam Cardiovascular Exam: REGULAR RHYTHM, +S1, +S2. absent: Murmur - GI/Abdominal Exam GI & Abdominal Exam: Diminished Bowel Sounds - Rectal Exam Rectal Exam: Deferred Assessment and Plan (1) Acute acalculous cholecystitis Status: Acute (2) Alcohol abuse Status: Acute (3) Alcohol dependence Status: Acute (4) Alcohol intoxication Status: Acute (5) Alcohol intoxication Status: Acute (6) Alcohol use disorder Status: Acute (7) Alcohol-induced mood disorder Status: Acute (8) Alcoholic gastritis Status: Acute (9) Bleeding from ear Status: Acute (10) Depression Status: Acute (11) Depression Status: Acute (12) Elevated liver enzymes Status: Acute (13) Encounter for psychiatric assessment Status: Acute (14) HTN (hypertension) Status: Acute (15) Hepatic encephalopathy Status: Acute (16) History of ureter stent Status: Acute (17) Hyperammonemia Status: Acute (18) Kidney stone Status: Acute (19) Major depressive disorder Status: Acute (20) Nausea Status: Acute (21) Onset of alcohol-induced mood disorder during intoxication Status: Acute (22) Prophylactic measure Status: Acute (23) Renal colic on right side Status: Acute (24) Suicidal ideations Status: Acute (25) Vomiting Status: Acute (26) Weakness Status: Acute (27) Hepatitis C Status: Chronic (28) Colitis Status: Suspected
[2017-02-26 20:03] LABS: BASO % 0.6 % (0.0-2.0); EOS # 0.1 K/uL (0.0-0.7); EOS % 2.1 % (0.0-4.0); HEMATOCRIT 36.8 % (35.0-51.0); LYMPH # 0.6 K/uL (1.0-4.3); LYMPH % 19.1 % (20.0-40.0); MEAN CORPUSCULAR HEMOGLOBIN 30.1 pg (27.0-31.0); MEAN CORPUSCULAR HGB CONC 34.2 g/dL (33.0-37.0); MEAN PLATELET VOLUME 7.3 fL (7.2-11.7); MONO # 0.3 K/uL (0.0-0.8); MONO % 10.2 % (0.0-10.0); RED CELL DISTRIBUTION WIDTH 14.4 % (11.5-14.5); WHITE BLOOD COUNT 3.1 K/uL (4.8-10.8)
[2017-02-26 20:12] LABS: CHLORIDE 99 mmol/L (98-107)
[2017-02-26 20:13] LABS: POTASSIUM 4.2 mmol/L (3.6-5.2); SODIUM 137 mmol/L (132-148)
[2017-02-26 20:15] LABS: GFR AFRICAN-AMERICAN > 60
[2017-02-26 20:16] LABS: ALB/GLOB RATIO 1.2 (1.0-2.1); ALKALINE PHOSPHATASE 70 U/L (38-126); ALT/SGPT 34 U/L (21-72); AST/SGOT 27 U/L (17-59); BILIRUBIN,DIRECT 0.4 mg/dL (0.0-0.4); BILIRUBIN,TOTAL 0.8 mg/dL (0.2-1.3); BLOOD UREA NITROGEN 20 mg/dL (9-20); CALCIUM 8.6 mg/dl (8.6-10.4); CARBON DIOXIDE 30 mmol/L (22-30); GLUCOSE,RANDOM 89 mg/dL (75-110); TOTAL PROTEIN 7.2 g/dL (6.3-8.3)
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
--- NOTE | 2017-02-27 08:30 | CT ---
CT chest without IV contrast Indication: Chest pain, rule out pneumonia Technique: Contiguous axial images were obtained through the chest without intravenous contrast enhancement. Sagittal and coronal reconstructions were generated and reviewed. This CT exam was performed using 1 or more of the falling dose reduction techniques: Automated exposure control, adjustment of the MAA and/or kV according to patient size, and/or use of iterative reconstruction technique. Radiation dose (DLP): 365.96 MGy-cm. Comparison: Chest x-ray performed 02/25/17, CT chest performed 04/21/16 Findings: Visualized portions of the inferior thyroid gland appear unremarkable. The unenhanced mediastinal and hilar vascular structures appear grossly unremarkable. Heart size appears top normal. Coronary artery calcifications. No focal consolidation. No pleural effusion. No pneumothorax. No suspicious pulmonary nodules measuring greater than 5 mm. Small to moderate hiatal hernia. Prominent but sub cm mesenteric lymph nodes, nonspecific. Limited visualization of the noncontrast upper abdomen demonstrates partially imaged splenomegaly. Osseous demineralization. Multilevel degenerative changes. Right posterior 9th, 10th, and 11th posterior rib fracture deformities. Impression: No focal consolidation. No pleural effusion. No pneumothorax. Right 9th, 10th, and 11th posterior rib fracture deformities, likely chronic but new since prior CT performed 04/21/16. Correlate clinically. Limited visualized noncontrast upper abdomen: Small to moderate hiatal hernia. Prominent but sub cm mesenteric lymph nodes, nonspecific. Partially imaged splenomegaly.
--- NOTE | 2017-02-27 09:26 | CARD ---
APPROVED REPORT EKG Measurement Heart [id number] <Conclusion> Normal sinus rhythm Normal ECG
[2017-02-27] MEDS: Enoxaparin 40 mg Syringe SC SCH (10:03)
[2017-02-27] MEDS: Multiple Vitamins Tab PO SCH (10:03)
[2017-02-27] MEDS: Metoprolol Succinate 25 mg XL Tab PO SCH (10:05)
--- NOTE | 2017-02-27 14:04 | CP.PCM.PN ---
Subjective - Date & Time of Evaluation Date of Evaluation: 02/27/17 Time of Evaluation: 11:00 - Subjective Subjective: clinically same Objective - Vital Signs/Intake and Output Vital Signs (last 24 hours): Temp Pulse Resp BP Pulse Ox 98 F 70 18 123/78 98 02/27/17 08:19 02/27/17 08:19 02/27/17 08:19 02/27/17 08:19 02/27/17 08:19 Intake and Output: 02/27/17 02/27/17 06:59 18:59 Intake Total 740 Balance 740 - Medications Medications: Current Medications Aspirin (Aspirin) 325 mg PO DAILY [facility] Last Admin: 02/27/17 10:03 Dose: 325 mg Chlordiazepoxide (Librium) 25 mg PO Q4H PRN PRN Reason: Alcohol Withdrawal Last Admin: 02/27/17 01:17 Dose: 25 mg Enoxaparin Sodium (Lovenox) 40 mg SC DAILY [facility] Last Admin: 02/27/17 10:03 Dose: 40 mg Lisinopril (Zestril) 10 mg PO DAILY [facility] Last Admin: 02/27/17 10:03 Dose: 10 mg Lorazepam (Ativan) 0.5 mg IVP Q12 [facility] Last Admin: 02/27/17 10:04 Dose: 0.5 mg Metoprolol Succinate (Toprol Xl) 25 mg PO DAILY [facility] Last Admin: 02/27/17 10:05 Dose: 25 mg Multivitamins (Hexavitamin) 1 tab PO DAILY [facility] Last Admin: 02/27/17 10:03 Dose: 1 tab Quetiapine Fumarate (Seroquel) 300 mg PO HS [facility] Last Admin: 02/26/17 21:35 Dose: 300 mg Rosuvastatin Calcium (Crestor) 5 mg PO HS [facility] Last Admin: 02/26/17 21:35 Dose: 5 mg Thiamine HCl (Vitamin B1 Tab) 100 mg PO DAILY [facility] Last Admin: 02/27/17 10:03 Dose: 100 mg - Labs Labs: 02/26/17 19:55 02/26/17 19:55 PT 11.6 SECONDS (9.7-12.2) 02/25/17 13:23 INR 1.0 02/25/17 13:23 APTT 26 SECONDS (21-34) 02/25/17 13:23 - Constitutional Appears: Well - Head Exam Head Exam: ATRAUMATIC, NORMAL INSPECTION, NORMOCEPHALIC - Eye Exam Eye Exam: EOMI, Normal appearance, PERRL Pupil Exam: NORMAL ACCOMODATION, PERRL - ENT Exam ENT Exam: Mucous Membranes Moist, Normal Exam - Neck Exam Neck Exam: Full ROM, Normal Inspection. absent: Lymphadenopathy - Respiratory Exam Respiratory Exam: Decreased Breath Sounds - Cardiovascular Exam Cardiovascular Exam: REGULAR RHYTHM, +S1, +S2. absent: Murmur - GI/Abdominal Exam GI & Abdominal Exam: Diminished Bowel Sounds - Rectal Exam Rectal Exam: Deferred Assessment and Plan (1) Acute acalculous cholecystitis Status: Acute (2) Alcohol abuse Status: Acute (3) Alcohol dependence Status: Acute (4) Alcohol intoxication Status: Acute (5) Alcohol intoxication Status: Acute (6) Alcohol use disorder Status: Acute (7) Alcohol-induced mood disorder Status: Acute (8) Alcoholic gastritis Status: Acute (9) Bleeding from ear Status: Acute (10) Depression Status: Acute (11) Depression Status: Acute (12) Elevated liver enzymes Status: Acute (13) Encounter for psychiatric assessment Status: Acute (14) HTN (hypertension) Status: Acute (15) Hepatic encephalopathy Status: Acute (16) History of ureter stent Status: Acute (17) Hyperammonemia Status: Acute (18) Kidney stone Status: Acute (19) Major depressive disorder Status: Acute (20) Nausea Status: Acute (21) Onset of alcohol-induced mood disorder during intoxication Status: Acute (22) Prophylactic measure Status: Acute (23) Renal colic on right side Status: Acute (24) Suicidal ideations Status: Acute (25) Vomiting Status: Acute (26) Weakness Status: Acute (27) Hepatitis C Status: Chronic (28) Colitis Status: Suspected
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
[2017-02-27 16:38] VITALS: RESP 20
[2017-02-28] MEDS: Metoprolol Succinate 25 mg XL Tab PO SCH (10:05)
[2017-02-28] MEDS: Enoxaparin 40 mg Syringe SC SCH (10:05)
[2017-02-28] MEDS: Multiple Vitamins Tab PO SCH (10:05)
--- NOTE | 2017-02-28 18:26 | CP.PCM.PN ---
Subjective - Date & Time of Evaluation Date of Evaluation: 02/28/17 Time of Evaluation: 10:40 - Subjective Subjective: clinically same Objective - Vital Signs/Intake and Output Vital Signs (last 24 hours): Temp Pulse Resp BP Pulse Ox 97.5 F L 76 20 144/93 H 99 02/28/17 15:00 02/28/17 16:35 02/28/17 15:00 02/28/17 15:00 02/28/17 15:00 Intake and Output: 02/28/17 02/28/17 06:59 18:59 Intake Total 300 Balance 300 - Medications Medications: Current Medications Aspirin (Aspirin) 325 mg PO DAILY [facility] Last Admin: 02/28/17 10:04 Dose: 325 mg Chlordiazepoxide (Librium) 25 mg PO Q4H PRN PRN Reason: Alcohol Withdrawal Last Admin: 02/28/17 16:07 Dose: 25 mg Enoxaparin Sodium (Lovenox) 40 mg SC DAILY [facility] Last Admin: 02/28/17 10:05 Dose: 40 mg Lisinopril (Zestril) 10 mg PO DAILY [facility] Last Admin: 02/28/17 10:05 Dose: 10 mg Lorazepam (Ativan) 0.5 mg IVP Q12 [facility] Last Admin: 02/28/17 10:05 Dose: 0.5 mg Metoprolol Succinate (Toprol Xl) 25 mg PO DAILY [facility] Last Admin: 02/28/17 10:05 Dose: 25 mg Multivitamins (Hexavitamin) 1 tab PO DAILY [facility] Last Admin: 02/28/17 10:05 Dose: 1 tab Quetiapine Fumarate (Seroquel) 300 mg PO HS [facility] Last Admin: 02/27/17 21:53 Dose: 300 mg Rosuvastatin Calcium (Crestor) 5 mg PO HS [facility] Last Admin: 02/27/17 21:53 Dose: 5 mg Thiamine HCl (Vitamin B1 Tab) 100 mg PO DAILY [facility] Last Admin: 02/28/17 10:05 Dose: 100 mg - Labs Labs: 02/26/17 19:55 02/26/17 19:55 PT 11.6 SECONDS (9.7-12.2) 02/25/17 13:23 INR 1.0 02/25/17 13:23 APTT 26 SECONDS (21-34) 02/25/17 13:23 - Constitutional Appears: Well - Head Exam Head Exam: ATRAUMATIC, NORMAL INSPECTION, NORMOCEPHALIC - ENT Exam ENT Exam: Mucous Membranes Moist, Normal Exam - Neck Exam Neck Exam: Full ROM, Normal Inspection. absent: Lymphadenopathy - Respiratory Exam Respiratory Exam: Decreased Breath Sounds - Cardiovascular Exam Cardiovascular Exam: REGULAR RHYTHM, +S1, +S2 - GI/Abdominal Exam GI & Abdominal Exam: Soft, Diminished Bowel Sounds - Rectal Exam Rectal Exam: Deferred Assessment and Plan (1) Acute acalculous cholecystitis Status: Acute (2) Alcohol abuse Status: Acute (3) Alcohol dependence Status: Acute (4) Alcohol intoxication Status: Acute (5) Alcohol intoxication Status: Acute (6) Alcohol use disorder Status: Acute (7) Alcohol-induced mood disorder Status: Acute (8) Alcoholic gastritis Status: Acute (9) Bleeding from ear Status: Acute (10) Depression Status: Acute (11) Depression Status: Acute (12) Elevated liver enzymes Status: Acute (13) Encounter for psychiatric assessment Status: Acute (14) HTN (hypertension) Status: Acute (15) Hepatic encephalopathy Status: Acute (16) History of ureter stent Status: Acute (17) Hyperammonemia Status: Acute (18) Kidney stone Status: Acute (19) Major depressive disorder Status: Acute (20) Nausea Status: Acute (21) Onset of alcohol-induced mood disorder during intoxication Status: Acute (22) Prophylactic measure Status: Acute (23) Renal colic on right side Status: Acute (24) Suicidal ideations Status: Acute (25) Vomiting Status: Acute (26) Weakness Status: Acute (27) Hepatitis C Status: Chronic (28) Colitis Status: Suspected
[2017-03-01 08:09] VITALS: BP 119/78; PULSE 69; TEMP 98.6; O2SAT 98
--- NOTE | 2017-03-01 11:09 | CP.PCM.PN ---
Subjective - Date & Time of Evaluation Date of Evaluation: 03/01/17 Time of Evaluation: 11:08 - Subjective Subjective: s/p stress test today Objective - Vital Signs/Intake and Output Vital Signs (last 24 hours): Temp Pulse Resp BP Pulse Ox 98.6 F 69 20 119/78 98 03/01/17 07:00 03/01/17 08:38 03/01/17 07:00 03/01/17 07:00 03/01/17 07:00 Intake and Output: 03/01/17 03/01/17 06:59 18:59 Intake Total 900 Balance 900 - Medications Medications: Current Medications Amlodipine Besylate (Norvasc) 10 mg PO DAILY [facility] Last Admin: 02/28/17 18:52 Dose: 10 mg Aspirin (Aspirin) 325 mg PO DAILY [facility] Last Admin: 02/28/17 10:04 Dose: 325 mg Chlordiazepoxide (Librium) 25 mg PO Q4H PRN PRN Reason: Alcohol Withdrawal Last Admin: 03/01/17 00:22 Dose: 25 mg Enoxaparin Sodium (Lovenox) 40 mg SC DAILY [facility] Last Admin: 02/28/17 10:05 Dose: 40 mg Lisinopril (Zestril) 10 mg PO DAILY [facility] Last Admin: 02/28/17 10:05 Dose: 10 mg Lorazepam (Ativan) 0.5 mg IVP Q12 [facility] Last Admin: 02/28/17 21:15 Dose: 0.5 mg Metoprolol Succinate (Toprol Xl) 25 mg PO DAILY [facility] Last Admin: 02/28/17 10:05 Dose: 25 mg Multivitamins (Hexavitamin) 1 tab PO DAILY [facility] Last Admin: 02/28/17 10:05 Dose: 1 tab Quetiapine Fumarate (Seroquel) 300 mg PO HS [facility] Last Admin: 02/28/17 21:15 Dose: 300 mg Rosuvastatin Calcium (Crestor) 5 mg PO HS [facility] Last Admin: 02/28/17 21:15 Dose: 5 mg Thiamine HCl (Vitamin B1 Tab) 100 mg PO DAILY [facility] Last Admin: 02/28/17 10:05 Dose: 100 mg - Labs Labs: 02/26/17 19:55 02/26/17 19:55 PT 11.6 SECONDS (9.7-12.2) 09/01/17 13:23 INR 1.0 02/25/17 13:23 APTT 26 SECONDS (21-34) 02/25/17 13:23
--- NOTE | 2017-03-01 13:46 | CP.PCM.PN ---
Subjective - Date & Time of Evaluation Date of Evaluation: 03/01/17 Time of Evaluation: 08:00 - Subjective Subjective: improving stress test report pending will need ongoing counseling Objective - Vital Signs/Intake and Output Vital Signs (last 24 hours): Temp Pulse Resp BP Pulse Ox 98.6 F 69 20 119/78 98 03/01/17 07:00 03/01/17 08:38 03/01/17 07:00 03/01/17 07:00 03/01/17 07:00 Intake and Output: 03/01/17 03/01/17 06:59 18:59 Intake Total 900 Balance 900 - Medications Medications: Current Medications Amlodipine Besylate (Norvasc) 10 mg PO DAILY [facility] Last Admin: 02/28/17 18:52 Dose: 10 mg Aspirin (Aspirin) 325 mg PO DAILY [facility] Last Admin: 02/28/17 10:04 Dose: 325 mg Chlordiazepoxide (Librium) 25 mg PO Q4H PRN PRN Reason: Alcohol Withdrawal Last Admin: 03/01/17 00:22 Dose: 25 mg Enoxaparin Sodium (Lovenox) 40 mg SC DAILY [facility] Last Admin: 02/28/17 10:05 Dose: 40 mg Lisinopril (Zestril) 10 mg PO DAILY [facility] Last Admin: 02/28/17 10:05 Dose: 10 mg Lorazepam (Ativan) 0.5 mg IVP Q12 [facility] Last Admin: 02/28/17 21:15 Dose: 0.5 mg Metoprolol Succinate (Toprol Xl) 25 mg PO DAILY [facility] Last Admin: 02/28/17 10:05 Dose: 25 mg Multivitamins (Hexavitamin) 1 tab PO DAILY [facility] Last Admin: 02/28/17 10:05 Dose: 1 tab Quetiapine Fumarate (Seroquel) 300 mg PO HS [facility] Last Admin: 02/28/17 21:15 Dose: 300 mg Rosuvastatin Calcium (Crestor) 5 mg PO HS [facility] Last Admin: 02/28/17 21:15 Dose: 5 mg Thiamine HCl (Vitamin B1 Tab) 100 mg PO DAILY [facility] Last Admin: 02/28/17 10:05 Dose: 100 mg - Labs Labs: 02/26/17 19:55 02/26/17 19:55 PT 11.6 SECONDS (9.7-12.2) 02/25/17 13:23 INR 1.0 02/25/17 13:23 APTT 26 SECONDS (21-34) 02/25/17 13:23 - Constitutional Appears: Non-toxic, Chronically Ill - Head Exam Head Exam: NORMOCEPHALIC - Eye Exam Eye Exam: PERRL - ENT Exam ENT Exam: Mucous Membranes Dry - Neck Exam Neck Exam: absent: Lymphadenopathy - Respiratory Exam Respiratory Exam: Decreased Breath Sounds - Cardiovascular Exam Cardiovascular Exam: REGULAR RHYTHM, +S1, +S2 Assessment and Plan (1) Neutropenia Status: Acute (2) Chest pain Status: Acute (3) Alcohol abuse Status: Acute
--- NOTE | 2017-03-01 14:23 | CP.PCM.PN ---
Subjective - Date & Time of Evaluation Date of Evaluation: 03/01/17 Time of Evaluation: 14:20 - Subjective Subjective: Service for Dr. Atkins Pt seen and examined at bedside. No acute distress. No events overnight. s/p stress test, cardiology workup in progress. No fevers, chills, vomiting, diarrhea, syncope. ID following as well. Objective - Vital Signs/Intake and Output Vital Signs (last 24 hours): Temp Pulse Resp BP Pulse Ox 98.6 F 69 20 119/78 98 03/01/17 07:00 03/01/17 08:38 03/01/17 07:00 03/01/17 07:00 03/01/17 07:00 Intake and Output: 03/01/17 03/01/17 06:59 18:59 Intake Total 900 Balance 900 - Medications Medications: Current Medications Amlodipine Besylate (Norvasc) 10 mg PO DAILY [facility] Last Admin: 02/28/17 18:52 Dose: 10 mg Aspirin (Aspirin) 325 mg PO DAILY [facility] Last Admin: 02/28/17 10:04 Dose: 325 mg Chlordiazepoxide (Librium) 25 mg PO Q4H PRN PRN Reason: Alcohol Withdrawal Last Admin: 03/01/17 00:22 Dose: 25 mg Enoxaparin Sodium (Lovenox) 40 mg SC DAILY [facility] Last Admin: 02/28/17 10:05 Dose: 40 mg Lisinopril (Zestril) 10 mg PO DAILY [facility] Last Admin: 02/28/17 10:05 Dose: 10 mg Lorazepam (Ativan) 0.5 mg IVP Q12 [facility] Last Admin: 02/28/17 21:15 Dose: 0.5 mg Metoprolol Succinate (Toprol Xl) 25 mg PO DAILY [facility] Last Admin: 02/28/17 10:05 Dose: 25 mg Multivitamins (Hexavitamin) 1 tab PO DAILY [facility] Last Admin: 02/28/17 10:05 Dose: 1 tab Quetiapine Fumarate (Seroquel) 300 mg PO HS [facility] Last Admin: 02/28/17 21:15 Dose: 300 mg Rosuvastatin Calcium (Crestor) 5 mg PO HS [facility] Last Admin: 02/28/17 21:15 Dose: 5 mg Thiamine HCl (Vitamin B1 Tab) 100 mg PO DAILY [facility] Last Admin: 02/28/17 10:05 Dose: 100 mg - Labs Labs: 02/26/17 19:55 02/26/17 19:55 PT 11.6 SECONDS (9.7-12.2) 02/25/17 13:23 INR 1.0 02/25/17 13:23 APTT 26 SECONDS (21-34) 02/25/17 13:23 - Constitutional Appears: Non-toxic, No Acute Distress - Head Exam Head Exam: ATRAUMATIC, NORMAL INSPECTION, NORMOCEPHALIC - Eye Exam Eye Exam: EOMI - ENT Exam ENT Exam: Mucous Membranes Moist - Neck Exam Neck Exam: Full ROM, Normal Inspection - Respiratory Exam Respiratory Exam: NORMAL BREATHING PATTERN. absent: Respiratory Distress - Cardiovascular Exam Cardiovascular Exam: +S1, +S2 - GI/Abdominal Exam GI & Abdominal Exam: Soft, Normal Bowel Sounds. absent: Tenderness - Extremities Exam Extremities Exam: Full ROM, Normal Inspection - Neurological Exam Neurological Exam: Alert, Awake, Oriented x3 - Psychiatric Exam Psychiatric exam: Normal Affect, Normal Mood - Skin Skin Exam: Dry, Intact, Normal Color, Warm Assessment and Plan - Assessment and Plan (Free Text) Assessment: This is a 57 yo male with past medical hx of alcoholism and heroin abuse presenting with chest pain 1. Chest pain, r/o acs -continue crestor 5 daily -toprol 25 daily -norvasc 10 daily -lisinopril 10 daily -asa daily -cardio consult. recs appreciated. -cxr negative -stress test pending 2. hx of alcoholism -thiamine daily -MVs -ativan .5 iv q 12 tanna 3. hx of bipolar -seroquel 300 daily 4. hx of HTN -continue toprol -contiue norvasc -continue lisinopril 5. GI/DVT ppx -continue lovenox -protonix daily
--- NOTE | 2017-03-01 14:34 | CP.PCM.PN ---
Subjective - Date & Time of Evaluation Date of Evaluation: 03/01/17 Time of Evaluation: 11:40 - Subjective Subjective: clinically same Objective - Vital Signs/Intake and Output Vital Signs (last 24 hours): Temp Pulse Resp BP Pulse Ox 98.6 F 69 20 119/78 98 03/01/17 07:00 03/01/17 08:38 03/01/17 07:00 03/01/17 07:00 03/01/17 07:00 Intake and Output: 03/01/17 03/01/17 06:59 18:59 Intake Total 900 Balance 900 - Medications Medications: Current Medications Amlodipine Besylate (Norvasc) 10 mg PO DAILY [facility] Last Admin: 02/28/17 18:52 Dose: 10 mg Aspirin (Aspirin) 325 mg PO DAILY [facility] Last Admin: 02/28/17 10:04 Dose: 325 mg Chlordiazepoxide (Librium) 25 mg PO Q4H PRN PRN Reason: Alcohol Withdrawal Last Admin: 03/01/17 00:22 Dose: 25 mg Enoxaparin Sodium (Lovenox) 40 mg SC DAILY [facility] Last Admin: 02/28/17 10:05 Dose: 40 mg Lisinopril (Zestril) 10 mg PO DAILY [facility] Last Admin: 02/28/17 10:05 Dose: 10 mg Lorazepam (Ativan) 0.5 mg IVP Q12 [facility] Last Admin: 02/28/17 21:15 Dose: 0.5 mg Metoprolol Succinate (Toprol Xl) 25 mg PO DAILY [facility] Last Admin: 02/28/17 10:05 Dose: 25 mg Multivitamins (Hexavitamin) 1 tab PO DAILY [facility] Last Admin: 02/28/17 10:05 Dose: 1 tab Quetiapine Fumarate (Seroquel) 300 mg PO HS [facility] Last Admin: 02/28/17 21:15 Dose: 300 mg Rosuvastatin Calcium (Crestor) 5 mg PO HS [facility] Last Admin: 02/28/17 21:15 Dose: 5 mg Thiamine HCl (Vitamin B1 Tab) 100 mg PO DAILY [facility] Last Admin: 02/28/17 10:05 Dose: 100 mg - Labs Labs: 02/26/17 19:55 02/26/17 19:55 PT 11.6 SECONDS (9.7-12.2) 02/25/17 13:23 INR 1.0 02/25/17 13:23 APTT 26 SECONDS (21-34) 02/25/17 13:23 - Constitutional Appears: Well - Head Exam Head Exam: ATRAUMATIC, NORMAL INSPECTION, NORMOCEPHALIC - Eye Exam Eye Exam: EOMI, Normal appearance, PERRL Pupil Exam: NORMAL ACCOMODATION, PERRL - ENT Exam ENT Exam: Mucous Membranes Moist, Normal Exam - Neck Exam Neck Exam: Full ROM, Normal Inspection. absent: Lymphadenopathy - Respiratory Exam Respiratory Exam: Decreased Breath Sounds - Cardiovascular Exam Cardiovascular Exam: REGULAR RHYTHM, +S1, +S2 - GI/Abdominal Exam GI & Abdominal Exam: Soft, Diminished Bowel Sounds - Rectal Exam Rectal Exam: Deferred Assessment and Plan (1) Acute acalculous cholecystitis Status: Acute (2) Alcohol abuse Status: Acute (3) Alcohol dependence Status: Acute (4) Alcohol intoxication Status: Acute (5) Alcohol intoxication Status: Acute (6) Alcohol use disorder Status: Acute (7) Alcohol-induced mood disorder Status: Acute (8) Alcoholic gastritis Status: Acute (9) Bleeding from ear Status: Acute (10) Depression Status: Acute (11) Depression Status: Acute (12) Elevated liver enzymes Status: Acute (13) Encounter for psychiatric assessment Status: Acute (14) HTN (hypertension) Status: Acute (15) Hepatic encephalopathy Status: Acute (16) History of ureter stent Status: Acute (17) Hyperammonemia Status: Acute (18) Kidney stone Status: Acute (19) Major depressive disorder Status: Acute (20) Nausea Status: Acute (21) Onset of alcohol-induced mood disorder during intoxication Status: Acute (22) Prophylactic measure Status: Acute (23) Renal colic on right side Status: Acute (24) Suicidal ideations Status: Acute (25) Vomiting Status: Acute (26) Weakness Status: Acute (27) Hepatitis C Status: Chronic (28) Colitis Status: Suspected
[2017-03-01] MEDS: Enoxaparin 40 mg Syringe SC SCH ×2 (14:40→14:47)
[2017-03-01] MEDS: Metoprolol Succinate 25 mg XL Tab PO SCH (14:44)
[2017-03-01] MEDS: Multiple Vitamins Tab PO SCH (14:45)
--- NOTE | 2017-03-02 14:18 | CARD ---
APPROVED REPORT Protocol: TWAN Test Type: Stress Nuclear Test Indications: CHEST PAIN,R/O ACS Medications: LIST SCAN Medical History: CHEST PAIN,R/O ACS Target HR: 161 bpm Resting ECG: normal Resting Heart Rate: 76 bpm Resting Blood Pressure: 124/80mmHg submaximum (85%): 137 bpm TEST SUMMARY [id number]/80.0. PRETESTWARM-UP00:[id number]/.0. EXERCISESTAGE 103:[id number]/74.0. EXERCISESTAGE 203:[id number]/74.0. EXERCISESTAGE 303:[id number]/.0. EXERCISESTAGE 402:[id number]/78.0. ALENBASQ91:[id number]/78.0. POST EXERCISE Reason for Termination: Fatigue Target HR: No Max HR: 129 bpm 80% of Maximum Predicted HR: 161 bpm Exercise duration: 11:43 min:sec, 4 Stage Exercise capacity: 13.4METs Max Blood Pressure: 174/78mmHg Blood Pressure response to exercise: normal resting BP - appropriate response Heart Rate response to exercise: appropriate Chest Pain: No, none Angina index: 0 Arrhythmia: No, none ST Change: No, none Deviation: 0 mm INTERPRETATION Stress EKG Conclusion: Excellent exercise tolerance. No electrocardiographic evidence of ischemia noted. EXAM: Myocardial Perfusion STRESS/REST Imaging Protocol The imaging protocol used to acquire images was Stress Tc-99m/rest Tc-99m 1 day Rest Spect myocardial perfusion imaging was performed in supine position 45 minutes following the injection of 30.1 mCi of Tc-99 Myoview. Gated Stress Spect was performed 45 minutes after intravenous 12.6 mCi Tc-99 Myoview injection. The images were gated to evaluate regional wall motion and calculate ventricular ejection fraction.Images were reconstructed using backfilter projection method in short horizontal and verticle long axis. Spect slices were generated. RESTING DATA EDV76.37vvWY7.80L/min ESV28.00mlMyocardial Quur984.00g Av. Heart Rate78.00bpm EF63.00% STRESS DATA EDV53.54goGV5.70L/min ESV9.00mlMyocardial Mass97.00g EF83.00% Regional WT score at stress:2.00 Regional WM score at stress:0.00 Summed WT score at stress:14.00 Av. Heart Rate83.00bpmSummed WM score at stress:0.00 Study quality was fair. Left Ventricular size was Normal at Rest and Stress. The rest and stress images show normal perfusion, normal contraction and thickening. LV Perf. Quant 17 Seg. SSS0.00 17 Seg. SRS0.00 17 Seg. SDS0.00 Stress Defect Extent (% LAD)0.00Rest Defect Extent (% LAD)0.00Rev. Defect Extent (% LAD)0.00 Stress Defect Extent (% LCX)0.00Rest Defect Extent (% LCX)0.00Rev. Defect Extent (% LCX)0.00 Stress Defect Extent (% RCA)0.00Rest Defect Extent (% RCA)0.00Rev. Defect Extent (% RCA)0.00 Stress Defect Extent (% LEONOR)0.00Rest Defect Extent (% LEONOR)0.00Rev. Defect Extent (% LEONOR)0.00 Other Information Quality:Average Overall Exercise Capacity: Excellent IMPRESSION Normal Myocardial Perfusion exercise stress study Left Ventricle LV Size/Shape: The left ventricle is normal size. LV Thickness: There is mildconcentric left ventricular hypertrophy. LV Function:Left ventricle systolic function is normal. The Ejection Fraction is 60-65%. Regional Wall Motion:There is normal left ventricular wall motion. Metabolism/Perfusion There are no perfusion/metabolism defects. Conclusion 1. - Normal myocardial perfusion study with no evidence of ischemia 2. - Normal LVEF
== END 2017-03-01 15:20 | disposition left against medical advice (07) | DRG 809 ==
LOC: C.ER 12:44 → C.9E 15:25 → C.6T 18:52 → OBSVTOIN 02-26 15:53
PROVIDERS: ADMIT Internal Medicine Nephrology; ATTEND Internal Medicine Nephrology
DX: D70.9 Neutropenia, unspecified (principal); R45.851 Suicidal ideations; K72.90 Hepatic failure, unspecified without coma; F11.90 Opioid use, unspecified, uncomplicated; Z87.891 Personal history of nicotine dependence; K52.9 Noninfective gastroenteritis and colitis, unspecified; H92.20 Otorrhagia, unspecified ear; F19.10 Other psychoactive substance abuse, uncomplicated; F10.120 Alcohol abuse with intoxication, uncomplicated; Y90.6 Blood alcohol level of 120-199 mg/100 ml; Z68.21 Body mass index [BMI] 21.0-21.9, adult; B19.20 Unspecified viral hepatitis C without hepatic coma; I12.9 Hypertensive chronic kidney disease with stage 1 through stage 4 chronic kidney disease, or unspecified chronic kidney disease; N18.9 Chronic kidney disease, unspecified; F32.9 Major depressive disorder, single episode, unspecified

== ENCOUNTER 2017-03-07 16:40 | Observation (INO) | payer MEDICARE, OTHER ==
[2017-03-07 16:40] VITALS: BMI 19.7
--- NOTE | 2017-03-07 17:15 | C.PDOC ---
History Of Present Illness 57 y/o male with Hx of Substance abuse brought to ED by EMS for acute ETOH intoxication. Patient states "he screwed up and has been drinking all day". Patient is requesting to be observed at the hospital until he ramon up. Patient denies suicidal ideation, homicidal ideation or any other complaints at this time. Time Seen by Provider: 03/07/17 16:56 Chief Complaint (Nursing): Substance Abuse History Per: Patient History/Exam Limitations: no limitations Onset/Duration Of Symptoms: Hrs Current Symptoms Are (Timing): Still Present Suicide/Self Injury Attempted (Context): None Modifying Factor(s): Alcohol Past Medical History Reviewed: Historical Data, Nursing Documentation, Vital Signs Vital Signs: Last Vital Signs Temp 97.8 F 03/07/17 21:15 Pulse 81 03/07/17 21:15 Resp 17 03/07/17 21:15 BP 111/72 03/07/17 21:15 Pulse Ox 96 03/07/17 21:15 - Medical History PMH: Anxiety, Depression, Hepatitis, HTN, Kidney Stones, Chronic Kidney Disease , Seizures Surgical History: Appendectomy (AGE 12) - [facility] Procedures DETOXIFICATION SERVICES FOR SUBSTANCE ABUSE TREATMENT (05/11/15) GROUP PSYCHOTHERAPY (10/28/16) INDIVIDUAL PSYCHOTHERAPY, SUPPORTIVE (10/28/16) MEDICATION MANAGEMENT (10/28/16) MEDS MGMT FOR SUBSTANCE ABUSE TREATMENT, ANTABUSE (10/28/16) Family History: States: [place] (father at age 45) - Social History Hx Tobacco Use: No Hx Alcohol Use: Yes Hx Substance Use: Yes - Immunization History Hx Tetanus Toxoid Vaccination: No Hx Influenza Vaccination: No Hx Pneumococcal Vaccination: No Review Of Systems Except As Marked, All Systems Reviewed And Found Negative. Constitutional: Negative for: Fever, Chills Eyes: Negative for: Vision Change Cardiovascular: Negative for: Chest Pain Respiratory: Negative for: Shortness of Breath Gastrointestinal: Negative for: Nausea, Vomiting Psych: Negative for: Suicidal ideation Physical Exam - Physical Exam Appears: Non-toxic, No Acute Distress, Other (ETOH on breath) Skin: Normal Color, Warm, Dry, No Rash Head: Atraumatic, Normacephalic Eye(s): bilateral: Normal Inspection Neck: Normal ROM Chest: Symmetrical Cardiovascular: Rhythm Regular, No Murmur Respiratory: Normal Breath Sounds, No Rales, No Rhonchi, No Wheezing Gastrointestinal/Abdominal: Soft, No Tenderness, No Guarding, No Rebound Neurological/Psych: Oriented x3 ED Course And Treatment O2 Sat by Pulse Oximetry: 100 (RA) Pulse Ox Interpretation: Normal Medical Decision Making Medical Decision Making: etoh abuse- no hi/si/hallucinations- will continue to reassess 945: pt reassesed: ambulatory in er. no si/hi. asking for d/c ED OBSERVATION Date of observation admission: 03/07/17 Time of observation admission: 17:14 - Observation admission statement Patient is being placed in observation because:: ETOH intoxication - Goals of Observation Goals of observation are:: Sobreity - Progress Note Progress Note: 03/07/17 17:15 Vital signs stable 03/07/17 21:13 Patient is awake, alert and ambulatory, requesting to be discharged Disposition - Disposition Disposition: HOME/ ROUTINE Disposition Time: 22:18 Condition: STABLE - Clinical Impression Clinical Impression: Alcohol abuse - Scribe Statement The provider has reviewed the documentation as recorded by the Bhaskar Olivo All medical record entries made by the Bhaskar were at my direction and personally dictated by me. I have reviewed the chart and agree that the record accurately reflects my personal performance of the history, physical exam, medical decision making, and the department course for this patient. I have also personally directed, reviewed, and agree with the discharge instructions and disposition.
[2017-03-07 21:19] VITALS: BP 111/72; PULSE 81; RESP 17; TEMP 97.8
[2017-03-07 22:18] VITALS: O2SAT 100
== END 2017-03-07 21:10 | disposition home or self-care (01) ==
LOC: C.ER 16:40 → C.9OBSV 17:18
PROVIDERS: ADMIT Student in an Organized Health Care Education/Training Program; ATTEND Student in an Organized Health Care Education/Training Program
DX: F10.129 Alcohol abuse with intoxication, unspecified (principal); I10 Essential (primary) hypertension
CPT/HCPCS: 82948; G0378

== ENCOUNTER 2017-08-10 09:40 | Inpatient (IN) | payer MEDICARE, OTHER ==
[2017-08-10 09:40] VITALS: BMI 19.7
[2017-08-10] MEDS ORDERED: Sodium Chloride 0.9% 1,000 ML IV ONE (10:50)
[2017-08-10] MEDS ORDERED: Sodium Chloride 0.9% 1,000 ML ONE (10:59)
--- NOTE | 2017-08-10 11:02 | C.PDOC ---
History Of Present Illness 57-year-old male, PMHx includes EtOH abuse and Depression, presents to the emergency department with complaints of non-radiating, left-sided chest pain that started "at dinner-time" today. Patient seen for EtOH intoxication at [facility] yesterday. Patient states he was drinking upon discharge. Denies any shortness of breath, nausea/vomiting, fevers or chills. Patient poor historian due to intoxication. Time Seen by Provider: 08/10/17 10:24 Chief Complaint (Nursing): Chest Pain History Per: Patient History/Exam Limitations: intoxication Onset/Duration Of Symptoms: Hrs Current Symptoms Are (Timing): Still Present Past Medical History Reviewed: Historical Data Vital Signs: Last Vital Signs Temp 97.9 F 08/10/17 09:53 Pulse 82 08/10/17 13:43 Resp 13 08/10/17 13:43 BP 119/65 08/10/17 13:43 Pulse Ox 98 08/10/17 13:57 - Medical History PMH: Anxiety, Depression, Hepatitis, HTN, Kidney Stones, Chronic Kidney Disease , Seizures Surgical History: Appendectomy (AGE 12) - [facility] Procedures DETOXIFICATION SERVICES FOR SUBSTANCE ABUSE TREATMENT (05/11/15) GROUP PSYCHOTHERAPY (10/28/16) INDIVIDUAL PSYCHOTHERAPY, SUPPORTIVE (10/28/16) MEDICATION MANAGEMENT (10/28/16) MEDS MGMT FOR SUBSTANCE ABUSE TREATMENT, ANTABUSE (10/28/16) Family History: States: [place] (father at age 45) - Social History Hx Tobacco Use: No Hx Alcohol Use: Yes Hx Substance Use: Yes - Immunization History Hx Tetanus Toxoid Vaccination: No Hx Influenza Vaccination: No Hx Pneumococcal Vaccination: No Review Of Systems Constitutional: Negative for: Fever Cardiovascular: Positive for: Chest Pain Respiratory: Negative for: Cough, Shortness of Breath Gastrointestinal: Negative for: Nausea, Vomiting, Abdominal Pain Musculoskeletal: Negative for: Back Pain Neurological: Negative for: Weakness, Numbness, Headache, Dizziness Physical Exam - Physical Exam Appears: Non-toxic, No Acute Distress, Other (Intoxicated) Skin: Warm, Dry, No Rash Head: Normacephalic Eye(s): bilateral: PERRL Nose: Normal, No Flaring, No Discharge Oral Mucosa: Moist Lips: Normal Appearing Neck: Normal ROM Chest: Symmetrical, No Deformity, No Tenderness, No Ecchymosis Cardiovascular: Rhythm Regular, No Murmur Respiratory: Normal Breath Sounds, No Accessory Muscle Use Gastrointestinal/Abdominal: Soft, No Tenderness Extremity: Normal ROM Neurological/Psych: Other (No focal deficit) ED Course And Treatment - Laboratory Results Result Diagrams: 08/10/17 11:16 08/10/17 11:16 ECG: Interpreted By Me, Viewed By Me ECG Rhythm: Sinus Rhythm ECG Interpretation: No Acute Changes Rate From EC O2 Sat by Pulse Oximetry: 98 (RA) Pulse Ox Interpretation: Normal Medical Decision Making Medical Decision Making: Plan: * Labs * EKG * Chest X-Ray * Aspirin, IVFs * UA * Reassess and Disposition Re-evaluation Patient is being admitted to Dr Jasiel Atkins. All questions answered. he is agreeable with plan. Disposition Discussed With .: Nati Atkins Doctor Will See Patient In The: Hospital Counseled Patient/Family Regarding: Studies Performed, Diagnosis - Disposition Disposition: HOSPITALIZED Disposition Time: 13:56 Condition: FAIR Forms: [facility] ([place]) - Clinical Impression Clinical Impression: Alcohol abuse, Chest pain, Pancreatitis - Scribe Statement The provider has reviewed the documentation as recorded by the Scribe (Juan Ramon Orosco) All medical record entries made by the Scribe were at my direction and personally dictated by me. I have reviewed the chart and agree that the record accurately reflects my personal performance of the history, physical exam, medical decision making, and the department course for this patient. I have also personally directed, reviewed, and agree with the discharge instructions and disposition.
[2017-08-10 11:21] LABS: BASO % 1.2 % (0.0-2.0); EOS # 0.1 K/uL (0.0-0.7); EOS % 3.5 % (0.0-4.0); HEMOGLOBIN 11.6 g/dL (12.0-18.0); LYMPH # 0.8 K/uL (1.0-4.3); LYMPH % 28.9 % (20.0-40.0); MEAN CELL VOLUME 86.3 fL (80.0-94.0); MEAN CORPUSCULAR HEMOGLOBIN 29.3 pg (27.0-31.0); MEAN PLATELET VOLUME 6.9 fL (7.2-11.7); MONO # 0.3 K/uL (0.0-0.8); MONO % 12.1 % (0.0-10.0); NEUT # 1.5 K/uL (1.8-7.0); NEUT % 54.3 % (50.0-75.0); NRBC % 0.2 % (0.0-2.0); RBC 3.95 Mil/uL (4.40-5.90); RED CELL DISTRIBUTION WIDTH 18.6 % (11.5-14.5); WHITE BLOOD COUNT 2.7 K/uL (4.8-10.8)
[2017-08-10 11:52] LABS: ALB/GLOB RATIO 1.1 (1.0-2.1); ALBUMIN 4.2 g/dL (3.5-5.0); ALT/SGPT 46 U/L (21-72); AST/SGOT 53 U/L (17-59); BLOOD UREA NITROGEN 17 mg/dL (9-20); CALCIUM 9.1 mg/dl (8.6-10.4); GFR AFRICAN-AMERICAN > 60; GFR NON-AFRICAN AMERICAN > 60; LIPASE 442 U/L (23-300)
[2017-08-10 12:01] LABS: SQUAMOUS EPITHIAL < 1 /hpf (0-5); URINE BACTERIA RARE (<OCC); URINE BILIRUBIN NEGATIVE (NEGATIVE); URINE BLOOD NEGATIVE (NEGATIVE); URINE CLARITY Hazy (Clear); URINE COLOR Yellow (YELLOW); URINE GLUCOSE (UA) NORMAL (Normal); URINE LEUKOCYTE ESTERASE NEG Leu/uL (Negative); URINE NITRATE NEGATIVE (NEGATIVE); URINE PROTEIN 1+ mg/dL (NEGATIVE)
--- NOTE | 2017-08-10 12:02 | RAD ---
HISTORY: chest pain COMPARISON: Chest x-ray performed 02/25/17 TECHNIQUE: Chest, one view. FINDINGS: Examination limited by habitus and hypoinflation. LUNGS: No focal consolidation. Please note that chest x-ray has limited sensitivity for the detection of pulmonary masses. PLEURA: No significant pleural effusion identified. No definite pneumothorax . CARDIOVASCULAR: The cardiomediastinal silhouette appears within normal limits of size. OSSEOUS STRUCTURES: No acute osseous abnormality identified. VISUALIZED UPPER ABDOMEN: Unremarkable. OTHER FINDINGS: None. IMPRESSION: No focal consolidation identified.
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
[2017-08-10] MEDS: Sodium Chloride 0.45% 1,000 ML IV SCH (19:45)
[2017-08-11 06:39] LABS: AMYLASE 106 U/L (30-110); LIPASE 288 U/L (23-300)
--- NOTE | 2017-08-11 12:23 | CP.PCM.PN ---
Subjective - Date & Time of Evaluation Date of Evaluation: 08/11/17 Time of Evaluation: 12:20 - Subjective Subjective: PT SLEEPY. TREMORS PRESENT. NO NAUSEA. DENIES CHEST PAIN. S/P CH ETOH. HOMELESS. LIPASE IMPROVED. Objective - Vital Signs/Intake and Output Vital Signs (last 24 hours): Temp Pulse Resp BP Pulse Ox 97.4 F L 65 20 119/67 98 08/11/17 09:12 08/11/17 09:12 08/11/17 09:12 08/11/17 09:12 08/11/17 09:12 Intake and Output: 08/11/17 08/11/17 06:59 18:59 Intake Total 300 Balance 300 - Medications Medications: Current Medications Sodium Chloride (Sodium Chloride 0.45%) 1,000 mls @ 100 mls/hr IV .Q10H [facility] Last Admin: 08/10/17 19:45 Dose: 100 mls/hr Losartan Potassium (Cozaar) 100 mg PO DAILY [facility] Last Admin: 08/11/17 11:02 Dose: 100 mg Quetiapine Fumarate (Seroquel) 200 mg PO HS [facility] Last Admin: 08/10/17 21:28 Dose: 200 mg - Labs Labs: 08/10/17 11:16 08/10/17 11:16 - Constitutional Appears: No Acute Distress, Chronically Ill - Eye Exam Eye Exam: PERRL - ENT Exam ENT Exam: Normal Exam - Respiratory Exam Respiratory Exam: Clear to Ausculation Bilateral, NORMAL BREATHING PATTERN - Cardiovascular Exam Cardiovascular Exam: REGULAR RHYTHM, +S1, +S2 - GI/Abdominal Exam GI & Abdominal Exam: Soft, Normal Bowel Sounds - Extremities Exam Extremities Exam: Full ROM, Normal Capillary Refill, Normal Inspection. absent : Joint Swelling, Pedal Edema - Neurological Exam Neurological Exam: Alert, Awake, CN II-XII Intact, Normal Gait, Oriented x3 - Psychiatric Exam Psychiatric exam: Normal Affect, Normal Mood Assessment and Plan - Assessment and Plan (Free Text) Assessment: ETOH. DEPRESSION. TREMORS. Plan: CT PRESENT TREATMENT. PSYCH CONSULT.
--- NOTE | 2017-08-11 13:50 | PCM.PSYCH ---
Initial Psychiatric Evaluation - Initial Psychiatric Evaluation Type of Admission: Voluntary Legal Status: Capacity Chief Complaint (in patient's own words): "I need detox" History of Present Illness and Precipitating Events: Consultation was requested for his alcohol withdrawal 57 year old male single with a 23 year old daughter, homeless, and unemployed but on disability for mental health issues is presenting with chest pain and desire to detox from alcohol. He starting drinking when he was 18 years old and started drinking a fifth of liquor about 30 years ago. He has tremors and diaphoresis when detoxing. He admitted to having some auditory and visual hallucinations 2 days ago. He has had one seizure from detox about 7 years ago. He has detoxed over 10 times and has been to rehab over 4 times. His longest sobriety was 1 year while he was at the [facility] in [place]. He used to smoke crack cocaine 8 years ago. Denies every smoking cigarettes. He has used opioids in the past but not currently. He has been hospitalized for psychiatric issues over 30 times. He states he was diagnosed with "Bipolar disorder" but did not describe any recent manic episodes. He states he "drinks alcohol to calm down." He also states he has had suicidal thoughts but currently is not suicidal. He describes his mood as "scared and tired". He said he is tired of the life he is living and is scared to be "out on the streets". Detox Hx: >10 Rehab Hx: >4 Medical Hx: Hypertension, Treated hepatitis C Medications: Losartan, Seroquel 100 mg Psych Hx: Depression, "bipolar" Fam Hx: siblings have substance use d/o Current Medications: Active Medications Generic Name Dose Route Start Last Admin Trade Name Kelsey PRN Reason Stop Dose Admin Chlordiazepoxide 25 mg 08/11/17 18:00 Librium PO 08/15/17 17:59 Q6 JULIO Taper Clonidine HCl 0.1 mg 08/11/17 13:30 Catapres PO Q4H PRN Symptoms of alcohol withdrawl Folic Acid 1 mg 08/11/17 14:00 Folic Acid PO DAILY JULIO Sodium Chloride 1,000 mls @ 100 mls/hr 08/10/17 19:15 08/10/17 19:45 Sodium Chloride 0.45% IV 100 mls/hr .Q10H JULIO Administration Multivitamins/Vitamin C 10 ml/ 1,011.2 mls @ 80 mls/hr 08/11/17 14:00 Thiamine HCl 100 mg/ Folic IV 08/12/17 02:38 Acid 1 mg/ Sodium Chloride .[id number] Lorazepam 1 mg 08/11/17 12:21 Ativan IVP Q6 PRN Symptoms of alcohol withdrawl Losartan Potassium 100 mg 08/11/17 10:00 08/11/17 11:02 Cozaar PO 100 mg DAILY JULIO Administration Multivitamins 1 tab 08/11/17 14:00 Hexavitamin PO DAILY JULIO Quetiapine Fumarate 100 mg 08/11/17 22:00 Seroquel PO HS [facility] Thiamine HCl 100 mg 08/11/17 14:00 Vitamin B1 Tab PO DAILY JULIO Trazodone HCl 50 mg 08/11/17 22:00 Desyrel PO HS [facility] Past Psychiatric History - Past Psychiatric History Previous Treatment History: Inpatient Pertinent Medical Hx (Current Medical&Sleep Prob, Allergies): Allergies Allergy/AdvReac Type Severity Reaction Status Date / Time No Known Allergies Allergy Verified 08/10/17 09:57 Losartan [Cozaar] 100 mg PO DAILY 08/10/17 Quetiapine Fumarate [Seroquel] 200 mg PO HS 08/10/17 Review of Systems - Neurological Neurological: Tremor - Psychiatric Psychiatric: Abnormal Sleep Pattern, Depression. absent: Auditory Hallucinations, Hallucinations, Suicidal Ideation, Visual Hallucinations Mental Status Examination - Personal Presentation Personal Presentation: Looks older than stated age - Affect Affect: Broad - Motor Activity Motor Activity: Calm - Reliability in Providing Information Reliability in Providing Information: Good - Speech Speech: Organized - Mood Mood: Depressed - Formal Thought Process Formal Thought Process: No Impairment - Obsessions/Compulsions Obsessions: No Compulsions: No - Cognitive Functions Orientation: Person, Place, Situation, Time Sensorium: Alert Attention/Concentration: Attentive Abstract Thinking: [place] Estimate of Intelligence: Average Judgement: Intact, as evidence by: Insight regarding need for hospitalization Memory: Recent intact, as evidence by: Ability to recall events of the day, Remote intact, as evidenced by: Abilit to recall sig. life events - Risk Risk: Seizure, Withdrawal, Falls, Diminished functioning - Strength & Assets Inventory Strength & Assets Inventory: Family support, Employment history, Life experience , Cooperative - Limitations Limitations: Other (homeless, unemployed) DSM 5 DX - DSM 5 DSM 5 Diagnosis: Alcohol Withdrawal Alcohol Use d/o - severe Anxiety d/o - unspecified Major depression, recurrent, mild Cocaine use d/o in remission - Recommended/Plan of Treatment Treatment Recommendations and Plan of Treatment: Alcohol detox - librium taper Seroquel for sleep and depression As needed medications All risks, benefits and alternatives of the meds discussed, and the pt agreed and understood. Supportive therapy and psychoeducation [place] for abstinence CBT for relapse prevention Encourage MAT Refer to rehab or IOP, and self-help groups Smoking cessation with [place] Nicotine patch 34 min Projected ELOS: 4 days Prognosis: good with treatment Discharge Plan and Discharge Criteria: [facility] - Smoking Cessation Smoking Cessation Initiated: No Reason for not providing: Does not smoke
[2017-08-11] MEDS ORDERED: Multivitamin (MVI) 10 ML, Thiamine 100 MG, Folic Acid 1 MG in Sodium Chloride 0.9% 1,00... IV ONE (14:00)
[2017-08-11] MEDS: Multiple Vitamins Tab PO SCH (15:01)
--- NOTE | 2017-08-11 18:12 | CP.PCM.PN ---
Subjective - Date & Time of Evaluation Date of Evaluation: 08/11/17 Time of Evaluation: 09:00 - Subjective Subjective: weak but NAD 'c/o pain consider GI Eval Objective - Vital Signs/Intake and Output Vital Signs (last 24 hours): Temp Pulse Resp BP Pulse Ox 98.0 F 64 20 161/91 H 97 08/11/17 15:11 08/11/17 15:11 08/11/17 15:11 08/11/17 15:11 08/11/17 15:11 Intake and Output: 08/11/17 08/11/17 06:59 18:59 Intake Total 300 Balance 300 - Medications Medications: Current Medications Chlordiazepoxide (Librium) 25 mg PO Q6H JULIO PRN Reason: Taper Stop: 08/15/17 17:59 Clonidine HCl (Catapres) 0.1 mg PO Q4H PRN PRN Reason: Symptoms of alcohol withdrawl Folic Acid (Folic Acid) 1 mg PO DAILY [facility] Last Admin: 08/11/17 15:06 Dose: 1 mg Sodium Chloride (Sodium Chloride 0.45%) 1,000 mls @ 100 mls/hr IV .Q10H [facility] Last Admin: 08/10/17 19:45 Dose: 100 mls/hr Multivitamins/Vitamin C 10 ml/Thiamine HCl 100 mg/ Folic Acid 1 mg/ Sodium Chloride 1,011.2 mls @ 80 mls/hr IV .[id number] ONE Stop: 08/12/17 02:38 Lorazepam (Ativan) 1 mg IVP Q6 PRN PRN Reason: Symptoms of alcohol withdrawl Last Admin: 08/11/17 14:56 Dose: 1 mg Losartan Potassium (Cozaar) 100 mg PO DAILY [facility] Last Admin: 08/11/17 11:02 Dose: 100 mg Multivitamins (Hexavitamin) 1 tab PO DAILY [facility] Last Admin: 08/11/17 15:01 Dose: 1 tab Quetiapine Fumarate (Seroquel) 100 mg PO HS [facility] Thiamine HCl (Vitamin B1 Tab) 100 mg PO DAILY [facility] Last Admin: 08/11/17 15:01 Dose: 100 mg Trazodone HCl (Desyrel) 50 mg PO HS [facility] - Labs Labs: 08/10/17 11:16 08/10/17 11:16 - Constitutional Appears: Non-toxic, Cachectic, Chronically Ill - Head Exam Head Exam: NORMOCEPHALIC - Eye Exam Eye Exam: PERRL - ENT Exam ENT Exam: Mucous Membranes Dry - Neck Exam Neck Exam: absent: Lymphadenopathy - Respiratory Exam Respiratory Exam: Decreased Breath Sounds - Cardiovascular Exam Cardiovascular Exam: REGULAR RHYTHM - GI/Abdominal Exam GI & Abdominal Exam: Distended, Soft, Tenderness - Rectal Exam Rectal Exam: Deferred - Exam Exam: NORMAL INSPECTION Assessment and Plan (1) Pancreatitis Status: Acute (2) Acute acalculous cholecystitis Status: Acute - Assessment and Plan (Free Text) Assessment: rx reordered
[2017-08-11] MEDS: Sodium Chloride 0.45% 1,000 ML IV SCH (18:16)
--- NOTE | 2017-08-11 22:46 | HP ---
HISTORY OF PRESENT ILLNESS: This is a 57-year-old white male came to the emergency room with a history of nausea, vomiting and left-sided chest pain that started at dinnertime. The patient was seen for ETOH intoxication at [facility] yesterday. The patient stated he was drinking upon discharge. The patient denies having any shortness of breath, fever or chills. The patient is a poor historian due to intoxication. REVIEW OF SYSTEMS: CONSTITUTIONAL: No fever or chills. CARDIOVASCULAR SYSTEM: Positive for chest pain. RESPIRATORY SYSTEM: Negative for shortness of breath. GI SYSTEM: Positive for nausea, vomiting, abdominal pain. : No urinary complaints. 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 PAST MEDICAL HISTORY: Anxiety, depression, hepatitis, hypertension, renal stones, chronic renal failure, seizure disorder, chronic ETOH. ALLERGIES: NO KNOWN ALLERGY. FAMILY HISTORY: No known inherited disease. SOCIAL HISTORY: Alcoholic. Substance abuse positive. Tobacco negative. PHYSICAL EXAMINATION: GENERAL: This is a 57-year-old white male, awake, sleepy, lethargic, intoxicated. VITAL SIGNS: Temperature 97.9, pulse 82, respirations 13, blood pressure 119/65 mmHg, pulse ox is 98% on room air. HEENT: Normal. NECK: JVP is flat. Carotids, no bruits. LUNGS: No rales. No wheezing. HEART: S1, S2 normal. No gallop. No murmur. ABDOMEN: Soft, nontender, no organomegaly. 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 EXTREMITIES: No edema of the legs. LABORATORY DATA: On admission white cell count is 2.7, mild anemia present 11.6. BMP is within normal limits. The patient's amylase and lipase was elevated. IMPRESSION: 1. Alcohol intoxication. 2. Acute pancreatitis. 3. Chronic ethyl alcohol. 4. Depression. 5. The patient homeless. PLAN: The patient will be admitted to the floor. We will get ID evaluation done. We will also watch for withdrawal. Other workup as needed. Nati Atkins MD
[2017-08-12] MEDS: Sodium Chloride 0.45% 1,000 ML IV SCH ×4 (01:15→23:39)
[2017-08-12] MEDS: Multiple Vitamins Tab PO SCH (09:49)
[2017-08-12] MEDS ORDERED: Influenza Vaccine 60 mcg/0.5 mL SYR (4YR UP) IM ONE (10:00)
[2017-08-12] MEDS ORDERED: Pneumococcal 23-Valent Vaccine IM ONE (10:00)
--- NOTE | 2017-08-12 12:32 | CP.PCM.PN ---
Subjective - Date & Time of Evaluation Date of Evaluation: 08/12/17 Time of Evaluation: 12:29 - Subjective Subjective: CONDITION SAME. ALCOHOL WITHDRAWAL. TREMORS PRESENT. VS WNL. Objective - Vital Signs/Intake and Output Vital Signs (last 24 hours): Temp Pulse Resp BP Pulse Ox 97.7 F 53 L 20 143/77 94 L 08/12/17 08:45 08/12/17 08:45 08/12/17 08:45 08/12/17 08:45 08/12/17 08:45 Intake and Output: 08/12/17 08/12/17 06:59 18:59 Intake Total 790 Balance 790 - Medications Medications: Current Medications Chlordiazepoxide (Librium) 25 mg PO Q6H JULIO PRN Reason: Taper Stop: 08/15/17 17:59 Last Admin: 08/12/17 05:42 Dose: 25 mg Clonidine HCl (Catapres) 0.1 mg PO Q4H PRN PRN Reason: Symptoms of alcohol withdrawl Folic Acid (Folic Acid) 1 mg PO DAILY [facility] Last Admin: 08/12/17 09:49 Dose: 1 mg Sodium Chloride (Sodium Chloride 0.45%) 1,000 mls @ 100 mls/hr IV .Q10H [facility] Last Admin: 08/12/17 04:30 Dose: 100 mls/hr Lorazepam (Ativan) 1 mg IVP Q6 PRN PRN Reason: Symptoms of alcohol withdrawl Last Admin: 08/11/17 14:56 Dose: 1 mg Losartan Potassium (Cozaar) 100 mg PO DAILY [facility] Last Admin: 08/12/17 09:49 Dose: 100 mg Multivitamins (Hexavitamin) 1 tab PO DAILY [facility] Last Admin: 08/12/17 09:49 Dose: 1 tab Quetiapine Fumarate (Seroquel) 100 mg PO HS [facility] Last Admin: 08/11/17 21:49 Dose: 100 mg Thiamine HCl (Vitamin B1 Tab) 100 mg PO DAILY [facility] Last Admin: 08/12/17 09:48 Dose: 100 mg Trazodone HCl (Desyrel) 50 mg PO HS [facility] Last Admin: 08/11/17 21:48 Dose: 50 mg - Labs Labs: 08/10/17 11:16 08/10/17 11:16 - Constitutional Appears: No Acute Distress, Chronically Ill - Eye Exam Eye Exam: PERRL - ENT Exam ENT Exam: Normal Exam - Respiratory Exam Respiratory Exam: Clear to Ausculation Bilateral, NORMAL BREATHING PATTERN - Cardiovascular Exam Cardiovascular Exam: REGULAR RHYTHM, +S1, +S2 - GI/Abdominal Exam GI & Abdominal Exam: Soft, Normal Bowel Sounds - Extremities Exam Extremities Exam: Full ROM, Normal Capillary Refill, Normal Inspection. absent : Joint Swelling, Pedal Edema - Back Exam Back Exam: NORMAL INSPECTION Assessment and Plan - Assessment and Plan (Free Text) Assessment: ALCOHOL WITHDRAWAL. ETOH. PANCREATITIS. Plan: CT PRESENT TREATMENT. PT IS HOMELESS.
--- NOTE | 2017-08-12 13:15 | PCM.PYCHPN ---
Psychiatric Progress Note - Psychiatric Progress Note Patient seen today, length of contact: 15 minutes Patient Chief Complaint: "I feel good" Problems Identified/Issues Discussed: The pt is seen, chart reviewed, case discussed with staff. The pt is compliant with medications and reports no side-effects. Symptoms improving and patient needs more time to stabilize. The patient is feeling much better today and denies any complaints or issues. He is planning to go to [facility] in [place] or [place] following discharge. After care discussed, support and psychoeducation given. Medication Change: Yes (Detox changes daily) Medical Record Reviewed: Yes Mental Status Examination - Cognitive Function Orientation: Person, Place, Situation, Time Memory: Intact Attention: WNL Concentration: WNL Association: WNL Fund of Knowledge: WNL - Mood Mood: Neutral - Affect Affect: Broad - Speech Speech: Appropriate - Language Language: Word Retrieval - Formal Thought Process Formal Thought Process: No Impairment - Suicidal Ideation Suicidal Ideation: No - Homicidal Ideation Homicidal Ideation: No Goal/Treatment Plan - Goal/Treatment Plan Need for Continued Stay: Remain at risks for inpatient hospitalization, Discharge may exacerbated symptoms Progress Toward Problem(s) and Goals/Treatment Plan: Alcohol detox - librium taper Seroquel for sleep and depression As needed medications All risks, benefits and alternatives of the meds discussed, and the pt agreed and understood. Supportive therapy and psychoeducation [place] for abstinence CBT for relapse prevention Encourage MAT Refer to rehab or IOP, and self-help groups Smoking cessation with [place] Nicotine patch Estimated Date of D/C: 08/15/17 - Smoking Cessation Smoking Cessation Initiated: Yes
--- NOTE | 2017-08-12 18:38 | CP.PCM.PN ---
Subjective - Date & Time of Evaluation Date of Evaluation: 08/12/17 Time of Evaluation: 08:00 - Subjective Subjective: no fever iv rx in progress + tremors Objective - Vital Signs/Intake and Output Vital Signs (last 24 hours): Temp Pulse Resp BP Pulse Ox 98.2 F 57 L 20 135/82 98 08/12/17 15:20 18 16:19 18 15:20 08/12/17 15:20 08/12/17 15:20 Intake and Output: 08/12/17 08/12/17 06:59 18:59 Intake Total 790 Balance 790 - Medications Medications: Current Medications Chlordiazepoxide (Librium) 25 mg PO Q8H JULIO PRN Reason: Taper Stop: 08/15/17 17:59 Last Admin: 08/12/17 12:42 Dose: 25 mg Clonidine HCl (Catapres) 0.1 mg PO Q4H PRN PRN Reason: Symptoms of alcohol withdrawl Last Admin: 08/12/17 14:36 Dose: 0.1 mg Folic Acid (Folic Acid) 1 mg PO DAILY [facility] Last Admin: 08/12/17 09:49 Dose: 1 mg Sodium Chloride (Sodium Chloride 0.45%) 1,000 mls @ 100 mls/hr IV .Q10H [facility] Last Admin: 08/12/17 04:30 Dose: 100 mls/hr Lorazepam (Ativan) 1 mg IVP Q6 PRN PRN Reason: Symptoms of alcohol withdrawl Last Admin: 08/11/17 14:56 Dose: 1 mg Losartan Potassium (Cozaar) 100 mg PO DAILY [facility] Last Admin: 08/12/17 09:49 Dose: 100 mg Multivitamins (Hexavitamin) 1 tab PO DAILY [facility] Last Admin: 08/12/17 09:49 Dose: 1 tab Quetiapine Fumarate (Seroquel) 100 mg PO HS [facility] Last Admin: 08/11/17 21:49 Dose: 100 mg Thiamine HCl (Vitamin B1 Tab) 100 mg PO DAILY [facility] Last Admin: 08/12/17 09:48 Dose: 100 mg Trazodone HCl (Desyrel) 50 mg PO HS [facility] Last Admin: 08/11/17 21:48 Dose: 50 mg - Labs Labs: 08/10/17 11:16 08/10/17 11:16 - Constitutional Appears: Chronically Ill - Head Exam Head Exam: NORMAL INSPECTION - Eye Exam Eye Exam: PERRL - ENT Exam ENT Exam: Mucous Membranes Dry - Neck Exam Neck Exam: absent: Lymphadenopathy - Respiratory Exam Respiratory Exam: Decreased Breath Sounds - Cardiovascular Exam Cardiovascular Exam: REGULAR RHYTHM - GI/Abdominal Exam GI & Abdominal Exam: Distended Assessment and Plan (1) Pancreatitis Status: Acute (2) Acute acalculous cholecystitis Status: Acute
[2017-08-13] MEDS: Sodium Chloride 0.45% 1,000 ML IV SCH ×3 (07:30→19:25)
[2017-08-13 07:33] LABS: HEMOGLOBIN 10.3 g/dL (12.0-18.0); LYMPH # 0.6 K/uL (1.0-4.3); MEAN CORPUSCULAR HEMOGLOBIN 29.5 pg (27.0-31.0); MEAN CORPUSCULAR HGB CONC 34.3 g/dL (33.0-37.0); MONO # 0.2 K/uL (0.0-0.8); NEUT # 0.6 K/uL (1.8-7.0); NRBC % 0.3 % (0.0-2.0); RBC 3.49 Mil/uL (4.40-5.90)
[2017-08-13 07:53] LABS: BASO % 1.1 % (0.0-2.0); EOS % 2.9 % (0.0-4.0); LYMPH % 41.7 % (20.0-40.0); MEAN PLATELET VOLUME 7.2 fL (7.2-11.7); MONO % 12.5 % (0.0-10.0); NEUT % 41.8 % (50.0-75.0); RED CELL DISTRIBUTION WIDTH 18.2 % (11.5-14.5)
[2017-08-13 07:54] LABS: BLOOD UREA NITROGEN 12 mg/dL (9-20); CALCIUM 8.9 mg/dl (8.6-10.4); GFR AFRICAN-AMERICAN > 60; GFR NON-AFRICAN AMERICAN > 60
[2017-08-13 08:08] LABS: WHITE BLOOD COUNT 1.5 K/uL (4.8-10.8)
[2017-08-13] MEDS: Multiple Vitamins Tab PO SCH (09:22)
--- NOTE | 2017-08-13 17:05 | CP.PCM.PN ---
Subjective - Date & Time of Evaluation Date of Evaluation: 08/13/17 Time of Evaluation: 11:00 - Subjective Subjective: CONDITION SAME. ALCOHOL WITHDRAWAL. HOMELESS. Objective - Vital Signs/Intake and Output Vital Signs (last 24 hours): Temp Pulse Resp BP Pulse Ox 97.7 F 52 L 20 162/85 H 98 08/13/17 15:53 08/13/17 15:53 08/13/17 15:53 08/13/17 15:53 08/13/17 15:53 Intake and Output: 08/13/17 08/13/17 06:59 18:59 Intake Total 2340 Output Total 1850 Balance 490 - Medications Medications: Current Medications Chlordiazepoxide (Librium) 25 mg PO Q8H JULIO PRN Reason: Taper Stop: 08/15/17 17:59 Last Admin: 08/13/17 09:22 Dose: 25 mg Clonidine HCl (Catapres) 0.1 mg PO Q4H PRN PRN Reason: Symptoms of alcohol withdrawl Last Admin: 08/12/17 14:36 Dose: 0.1 mg Folic Acid (Folic Acid) 1 mg PO DAILY [facility] Last Admin: 08/13/17 09:22 Dose: 1 mg Sodium Chloride (Sodium Chloride 0.45%) 1,000 mls @ 100 mls/hr IV .Q10H [facility] Last Admin: 08/13/17 09:22 Dose: 100 mls/hr Lorazepam (Ativan) 1 mg IVP Q6 PRN PRN Reason: Symptoms of alcohol withdrawl Last Admin: 08/11/17 14:56 Dose: 1 mg Losartan Potassium (Cozaar) 100 mg PO DAILY [facility] Last Admin: 08/13/17 09:21 Dose: Not Given Multivitamins (Hexavitamin) 1 tab PO DAILY [facility] Last Admin: 08/13/17 09:22 Dose: 1 tab Quetiapine Fumarate (Seroquel) 100 mg PO HS [facility] Last Admin: 08/12/17 21:07 Dose: 100 mg Thiamine HCl (Vitamin B1 Tab) 100 mg PO DAILY [facility] Last Admin: 08/13/17 09:22 Dose: 100 mg Trazodone HCl (Desyrel) 50 mg PO HS [facility] Last Admin: 08/12/17 21:07 Dose: 50 mg - Labs Labs: 08/13/17 07:16 08/13/17 07:16 - Constitutional Appears: No Acute Distress, Chronically Ill - Eye Exam Eye Exam: PERRL - ENT Exam ENT Exam: Normal Exam - Respiratory Exam Respiratory Exam: Clear to Ausculation Bilateral, NORMAL BREATHING PATTERN - Cardiovascular Exam Cardiovascular Exam: REGULAR RHYTHM, +S1, +S2 - GI/Abdominal Exam GI & Abdominal Exam: Soft, Normal Bowel Sounds - Extremities Exam Extremities Exam: Full ROM, Normal Capillary Refill, Normal Inspection. absent : Joint Swelling, Pedal Edema - Back Exam Back Exam: NORMAL INSPECTION - Neurological Exam Neurological Exam: Alert, Awake, CN II-XII Intact, Normal Gait, Oriented x3 - Psychiatric Exam Psychiatric exam: Normal Affect, Normal Mood Assessment and Plan - Assessment and Plan (Free Text) Assessment: STABLE. Plan: FOR DISCHARGE PLANING.
[2017-08-14] MEDS: Multiple Vitamins Tab PO SCH (09:37)
--- NOTE | 2017-08-14 15:25 | CP.PCM.PN ---
Subjective - Date & Time of Evaluation Date of Evaluation: 08/14/17 Time of Evaluation: 08:00 - Subjective Subjective: less pain no fever awake alert NAD Objective - Vital Signs/Intake and Output Vital Signs (last 24 hours): Temp Pulse Resp BP Pulse Ox 97.5 F L 84 20 127/69 97 08/14/17 08:00 08/14/17 08:00 08/14/17 08:00 08/14/17 08:00 08/14/17 08:00 Intake and Output: 08/14/17 08/14/17 06:59 18:59 Intake Total 800 720 Output Total 1400 400 Balance -600 320 - Medications Medications: Current Medications Chlordiazepoxide (Librium) 25 mg PO Q12H JULIO PRN Reason: Taper Stop: 08/15/17 17:59 Last Admin: 08/14/17 05:51 Dose: 25 mg Clonidine HCl (Catapres) 0.1 mg PO Q4H PRN PRN Reason: Symptoms of alcohol withdrawl Last Admin: 08/12/17 14:36 Dose: 0.1 mg Folic Acid (Folic Acid) 1 mg PO DAILY [facility] Last Admin: 08/14/17 09:37 Dose: 1 mg Lorazepam (Ativan) 1 mg IVP Q6 PRN PRN Reason: Symptoms of alcohol withdrawl Last Admin: 08/11/17 14:56 Dose: 1 mg Losartan Potassium (Cozaar) 100 mg PO DAILY [facility] Last Admin: 08/14/17 09:36 Dose: 100 mg Multivitamins (Hexavitamin) 1 tab PO DAILY [facility] Last Admin: 08/14/17 09:37 Dose: 1 tab Quetiapine Fumarate (Seroquel) 100 mg PO [facility] Last Admin: 08/13/17 22:00 Dose: 100 mg Thiamine HCl (Vitamin B1 Tab) 100 mg PO DAILY [facility] Last Admin: 08/14/17 09:36 Dose: 100 mg Trazodone HCl (Desyrel) 50 mg PO [facility] Last Admin: 08/13/17 22:00 Dose: 50 mg - Labs Labs: 08/13/17 07:16 08/13/17 07:16 - Constitutional Appears: Non-toxic, Cachectic, Chronically Ill - Head Exam Head Exam: NORMOCEPHALIC - Eye Exam Eye Exam: PERRL - ENT Exam ENT Exam: Mucous Membranes Dry - Neck Exam Neck Exam: absent: Lymphadenopathy - Respiratory Exam Respiratory Exam: Decreased Breath Sounds - Cardiovascular Exam Cardiovascular Exam: REGULAR RHYTHM - GI/Abdominal Exam GI & Abdominal Exam: Distended, Soft - Rectal Exam Rectal Exam: Deferred - Exam Exam: NORMAL INSPECTION - Extremities Exam Extremities Exam: absent: Pedal Edema - Back Exam Back Exam: absent: CVA tenderness (L), CVA tenderness (R) - Neurological Exam Neurological Exam: Alert, Awake Assessment and Plan (1) Pancreatitis Status: Acute (2) Acute acalculous cholecystitis Status: Acute
--- NOTE | 2017-08-14 17:31 | CP.PCM.PN ---
Subjective - Date & Time of Evaluation Date of Evaluation: 08/14/17 Time of Evaluation: 11:30 - Subjective Subjective: CONDITION SAME. Objective - Vital Signs/Intake and Output Vital Signs (last 24 hours): Temp Pulse Resp BP Pulse Ox 97.5 F L 84 20 127/69 97 08/14/17 08:00 08/14/17 08:00 08/14/17 08:00 08/14/17 08:00 08/14/17 08:00 Intake and Output: 08/14/17 08/14/17 06:59 18:59 Intake Total 800 720 Output Total 1400 400 Balance -600 320 - Medications Medications: Current Medications Chlordiazepoxide (Librium) 25 mg PO Q12H [facility] PRN Reason: Taper Stop: 08/15/17 17:59 Last Admin: 08/14/17 05:51 Dose: 25 mg Clonidine HCl (Catapres) 0.1 mg PO Q4H PRN PRN Reason: Symptoms of alcohol withdrawl Last Admin: 08/12/17 14:36 Dose: 0.1 mg Folic Acid (Folic Acid) 1 mg PO DAILY [facility] Last Admin: 08/14/17 09:37 Dose: 1 mg Lorazepam (Ativan) 1 mg IVP Q6 PRN PRN Reason: Symptoms of alcohol withdrawl Last Admin: 08/11/17 14:56 Dose: 1 mg Losartan Potassium (Cozaar) 100 mg PO DAILY [facility] Last Admin: 08/14/17 09:36 Dose: 100 mg Multivitamins (Hexavitamin) 1 tab PO DAILY [facility] Last Admin: 08/14/17 09:37 Dose: 1 tab Quetiapine Fumarate (Seroquel) 100 mg PO [facility] Last Admin: 08/13/17 22:00 Dose: 100 mg Thiamine HCl (Vitamin B1 Tab) 100 mg PO DAILY [facility] Last Admin: 08/14/17 09:36 Dose: 100 mg Trazodone HCl (Desyrel) 50 mg PO [facility] Last Admin: 08/13/17 22:00 Dose: 50 mg - Labs Labs: 08/13/17 07:16 08/13/17 07:16 - Constitutional Appears: No Acute Distress, Chronically Ill - Eye Exam Eye Exam: Normal appearance, PERRL - ENT Exam ENT Exam: Normal Exam - Respiratory Exam Respiratory Exam: Clear to Ausculation Bilateral, NORMAL BREATHING PATTERN - Cardiovascular Exam Cardiovascular Exam: REGULAR RHYTHM, +S1, +S2 - GI/Abdominal Exam GI & Abdominal Exam: Soft, Normal Bowel Sounds - Extremities Exam Extremities Exam: Full ROM, Normal Capillary Refill, Normal Inspection. absent : Joint Swelling, Pedal Edema - Back Exam Back Exam: NORMAL INSPECTION Assessment and Plan - Assessment and Plan (Free Text) Assessment: ALCOHOL WITHDRAWAL. ETOH. Plan: PT CLAIMS THAT HE WILL GO TO [place] IN THE MORNING. DISCHARGE IN AM.
[2017-08-15] MEDS ORDERED: Influenza Vaccine 60 mcg/0.5 mL SYR (4YR UP) IM ONE (08:16)
[2017-08-15 08:43] VITALS: RESP 18; TEMP 97.7; O2SAT 97
--- NOTE | 2017-08-15 09:05 | CP.PCM.PN ---
Subjective - Date & Time of Evaluation Date of Evaluation: 08/15/17 Time of Evaluation: 09:05 - Subjective Subjective: RISK AND INSURANCE CONSULTANT CALLED BY PRIMARY RN GEOVANNA THAT PT REQUESTING TO BE D/C EARLY THIS MORNING HE HAS TO GET TO THE [employer]. PT STABLE. RISK AND INSURANCE CONSULTANT SPOKE W DR. Jasiel PARSONS AND PER HIM PT TO BE D/C TODAY. RX GIVEN FOR MVI, THIAMINE, AND FOLIC ACID. TO CONTINUE SAME HOME MEDS. NO FURTHER ORDERS. -FOLLOW UP WITH DR. Paola PARSONS OR YOUR PRIMARY DOCTOR IN THE OFFICE IN 5-7 DAYS FROM DISCHARGE---CALL THE OFFICE TODAY OR TOMORROW AND MAKE YOUR APPOINTMENT TIME. -STAY AWAY FROM ALCOHOL, SPICY, GREASY, SALTY, AND FATTY FOODS; THIS MAY CAUSE YOU TO HAVE MORE ABDOMINAL PAIN. -CONTINUE HOME MEDICATIONS USUAL. -NEW PRESCRIPTIONS INCLUDE 3 VITAMINS: 1) FOLIC ACID 1 MG BY MOUTH ONCE A DAY 2) THIAMINE 100 MG BY MOUTH ONCE A DAY. 3) MULTIVITAMIN 1 TABLET BY MOUTH ONCE A DAY. -IF YOU HAVE ANY FURTHER QUESTIONS OR CONCERNS, CONTACT DR. PARSONS'S OFFICE. Objective - Vital Signs/Intake and Output Vital Signs (last 24 hours): Temp Pulse Resp BP Pulse Ox 97.7 F 52 L 18 115/67 97 08/15/17 07:05 08/15/17 08:00 08/15/17 07:05 08/15/17 07:05 08/15/17 07:05 Intake and Output: 08/15/17 08/15/17 06:59 18:59 Output Total 250 Balance -250 - Medications Medications: Current Medications Chlordiazepoxide (Librium) 25 mg PO Q24H [facility] PRN Reason: Taper Stop: 08/15/17 17:59 Last Admin: 08/14/17 19:07 Dose: 25 mg Clonidine HCl (Catapres) 0.1 mg PO Q4H PRN PRN Reason: Symptoms of alcohol withdrawl Last Admin: 08/12/17 14:36 Dose: 0.1 mg Folic Acid (Folic Acid) 1 mg PO DAILY [facility] Last Admin: 08/14/17 09:37 Dose: 1 mg Lorazepam (Ativan) 1 mg IVP Q6 PRN PRN Reason: Symptoms of alcohol withdrawl Last Admin: 08/11/17 14:56 Dose: 1 mg Losartan Potassium (Cozaar) 100 mg PO DAILY [facility] Last Admin: 08/14/17 09:36 Dose: 100 mg Multivitamins (Hexavitamin) 1 tab PO DAILY [facility] Last Admin: 08/14/17 09:37 Dose: 1 tab Quetiapine Fumarate (Seroquel) 100 mg PO [facility] Last Admin: 08/14/17 21:24 Dose: 100 mg Thiamine HCl (Vitamin B1 Tab) 100 mg PO DAILY [facility] Last Admin: 08/14/17 09:36 Dose: 100 mg Trazodone HCl (Desyrel) 50 mg PO [facility] Last Admin: 08/14/17 21:25 Dose: 50 mg - Labs Labs: 08/13/17 07:16 08/13/17 07:16
[2017-08-15 09:32] VITALS: BP 119/72; PULSE 66
[2017-08-15] MEDS: Multiple Vitamins Tab PO SCH (09:32)
--- NOTE | 2017-08-15 12:08 | CP.PCM.PN ---
Subjective - Date & Time of Evaluation Date of Evaluation: 08/15/17 Time of Evaluation: 09:00 - Subjective Subjective: MEDICALLY STABLE. Objective - Vital Signs/Intake and Output Vital Signs (last 24 hours): Temp Pulse Resp BP Pulse Ox 97.7 F 66 18 119/72 97 08/15/17 07:05 08/15/17 09:31 08/15/17 07:05 08/15/17 09:31 08/15/17 07:05 Intake and Output: 08/15/17 08/15/17 06:59 18:59 Output Total 250 Balance -250 - Labs Labs: 08/13/17 07:16 08/13/17 07:16 - Constitutional Appears: No Acute Distress, Chronically Ill - Eye Exam Eye Exam: PERRL - ENT Exam ENT Exam: Mucous Membranes Moist - Respiratory Exam Respiratory Exam: Clear to Ausculation Bilateral, NORMAL BREATHING PATTERN - Cardiovascular Exam Cardiovascular Exam: REGULAR RHYTHM, +S1, +S2 - GI/Abdominal Exam GI & Abdominal Exam: Soft, Normal Bowel Sounds - Extremities Exam Extremities Exam: Full ROM, Normal Capillary Refill, Normal Inspection. absent : Joint Swelling, Pedal Edema - Back Exam Back Exam: NORMAL INSPECTION Assessment and Plan - Assessment and Plan (Free Text) Assessment: ALCOHOL WITHDRAWAL. ETOH. Plan: PT FOR DISCHARGE TO [facility].
== END 2017-08-15 10:49 | disposition home or self-care (01) | DRG 895 ==
LOC: C.ER 09:40 → C.9E 13:55 → C.6T 18:14 → C.9E 18:23 → C.6T 18:26 → OBSVTOIN 08-12 13:10
PROVIDERS: ADMIT Internal Medicine; ATTEND Internal Medicine
PROC: HZ2ZZZZ Detoxification Services for Substance Abuse Treatment (ICD-10-PCS; principal; 2017-08-11)
PROC: HZ52ZZZ Individual Psychotherapy for Substance Abuse Treatment, Cognitive-Behavioral (ICD-10-PCS; 2017-08-11)
PROC: HZ59ZZZ Individual Psychotherapy for Substance Abuse Treatment, Supportive (ICD-10-PCS; 2017-08-11)
PROC: HZ56ZZZ Individual Psychotherapy for Substance Abuse Treatment, Psychoeducation (ICD-10-PCS; 2017-08-11)
DX: F10.239 Alcohol dependence with withdrawal, unspecified (principal); K85.90 Acute pancreatitis without necrosis or infection, unspecified; K81.0 Acute cholecystitis; R56.9 Unspecified convulsions; F33.0 Major depressive disorder, recurrent, mild; F14.11 Cocaine abuse, in remission; F41.9 Anxiety disorder, unspecified; I12.9 Hypertensive chronic kidney disease with stage 1 through stage 4 chronic kidney disease, or unspecified chronic kidney disease; N18.9 Chronic kidney disease, unspecified; Z59.0 Homelessness; Z87.442 Personal history of urinary calculi; B19.20 Unspecified viral hepatitis C without hepatic coma; R07.89 Other chest pain